=== PATIENT | male | born 1950 | race Caucasian/White ===

== ENCOUNTER → 2018-12-26 | Outpatient (CLI) | payer MEDICARE, BC ==
--- NOTE | 2018-12-26 14:18 | XR ---
EXAMINATION TYPE: XR chest 2V DATE OF EXAM: 12/26/2018 COMPARISON: NONE TECHNIQUE: PA and lateral views submitted. HISTORY: Cough FINDINGS: The lungs are clear and there is no pneumothorax, pleural effusion, or focal pneumonia. IMPRESSION: 1. No acute process.
== END | disposition home or self-care (01) ==
LOC: RADXRMAIN 11:10
PROVIDERS: ATTEND Family Medicine
DX: R05 Cough (principal); J01.80 Other acute sinusitis
CPT/HCPCS: 71046

== ENCOUNTER → 2021-01-10 | Outpatient (CLI) | payer MEDICARE, BC ==
--- NOTE | 2021-01-10 16:35 | XR ---
EXAMINATION TYPE: XR chest 2V DATE OF EXAM: 01/10/2021 COMPARISON: Us x-ray 12/26/2018 HISTORY: Hypertension, history of Covid infection TECHNIQUE: Frontal and lateral views of the chest are obtained. FINDINGS: There is no focal air space opacity, pleural effusion, or pneumothorax seen. The cardiac silhouette size is within normal limits. Elevation of the right hemidiaphragm is stable. The osseou s structures are intact. IMPRESSION: No acute cardiopulmonary process.
== END ==
LOC: RADXRMAIN 11:47
PROVIDERS: ATTEND Family Medicine
DX: I10 Essential (primary) hypertension (principal)
CPT/HCPCS: 71046; Z8616

== ENCOUNTER → 2023-09-19 | Outpatient (CLI) | payer MEDICARE, BC ==
--- NOTE | 2023-09-19 16:11 | XR ---
EXAMINATION TYPE: XR Hip Bilateral 2 views each side Complete, XR knee complete 3 views each side lashawn ateral DATE OF EXAM: 09/19/2023 COMPARISON: NONE HISTORY: 73-year-old male R52, pain for one year FINDINGS: Hips: There is mild degenerative spurring of both hips but with relative preservation of hip joint space on either side. Some calcification forming at the bilateral hamstrings origin could reflect chronic ten dinopathy or other etiology such as CPPD. No acute fracture, subluxation, dislocation. Knees: No significant knee joint effusion. Minimal scattered spurring at both knees. Meniscal chondrocalcin osis noted. No acute fracture, subluxation, dislocation seen. IMPRESSION: 1. Hips: Mild degenerative change in both hips. There may be underlying chronic hamstrings origin ten dinopathy. 2. Knees: Meniscal chondrocalcinosis. Minimal scattered degenerative spurring. No acute osseous abnor mality seen.
== END | disposition home or self-care (01) ==
LOC: RADXRMAIN 14:01
PROVIDERS: ATTEND Family Medicine
DX: M16.0 Bilateral primary osteoarthritis of hip (principal); M11.262 Other chondrocalcinosis, left knee; M11.261 Other chondrocalcinosis, right knee; M25.761 Osteophyte, right knee; M25.762 Osteophyte, left knee
CPT/HCPCS: 73521

== ENCOUNTER 2024-01-12 02:22 | Inpatient (IN) | payer MEDICARE, BC ==
--- NOTE | 2024-01-12 02:27 | ED ---
Chest Pain HPI - General Stated Complaint: STEMI Time Seen by Provider: 01/12/24 02:24 - History of Present Illness Initial Comments: He is 73-year-old gentleman with a history of hypertension, no history of hyperlipidemia, no known cardiac disease not a smoker. Patient presents the ER today via EMS for chest pain. Patient woke from sleep had crushing retrosternal chest pain radiating to his left shoulder with associated diaphoresis and lightheadedness. EMS was called and EKG was performed on scene that was concerning for anterior lateral STEMI. The patient was given aspirin and nitro with some improvement with nitro. On arrival patient reports his pain is 8 out of 10 crushing radiating from the mid chest to the left shoulder. - Related Data Home Medications Medication Instructions Recorded Confirmed Losartan [Cozaar] 50 mg PO QAM 04/13/15 05/12/15 Olopatadine HCl [Patanol] 1 drop BOTH EYES DAILY 04/13/15 05/12/15 Allergies Allergy/AdvReac Type Severity Reaction Status Date / Time No Known Allergies Allergy Verified 05/12/15 06:30 Review of Systems ROS Statement: Those systems with pertinent positive or pertinent negative responses have been documented in the HPI. ROS Other: All systems not noted in ROS Statement are negative. EKG Findings - EKG Comments: EKG Findings:: EKG interpreted by me EKG obtained due to chest pain EKG obtained at 225 rate is 59 rhythm is sinus bradycardia, AL 172 QRS 96 QTc [address] elevations in leads aVL, V2, V3 V4 and peaked T waves in V5 and V6. There is reciprocal depression in leads III. This is concerning for an anterior lateral STEMI. Past Medical History Past Medical History: Eye Disorder, Hypertension, Osteoarthritis (OA) Additional Past Medical History / Comment(s): cataract RIGHT History of Any Multi-Drug Resistant Organisms: None Reported Past Surgical History: Breast Surgery Additional Past Surgical History / Comment(s): gynecomastia surg. as child, LEFT CATARACT SX 04/14/15 Past Anesthesia/Blood Transfusion Reactions: No Reported Reaction Past Psychological History: No Psychological Hx Reported Past Alcohol Use History: None Reported Past Drug Use History: None Reported - Past Family History Father Family Medical History: Cancer General Exam - General Exam Comments Initial Comments: Physical Exam GENERAL: Diaphoretic in acute distress HENT: Normocephalic, Atraumatic. EYES: PERRL, EOMI PULMONARY: Unlabored respirations. No audible rales rhonchi or wheezing was noted. CARDIOVASCULAR: Bradycardic, regular ABDOMEN: Soft and nontender with normal bowel sounds. SKIN: Banks diaphoretic : Deferred NEUROLOGIC: Hard of hearing patient is alert and oriented x3. Moving all extremities spontaneously MUSCULOSKELETAL: Normal extremities with adequate strength and full range of motion. No lower extremity swelling or edema. No calf tenderness. PSYCHIATRIC: Normal psychiatric evaluation. Course Vital Signs 01/12/24 01/12/24 02:25 02:46 Temperature 97.6 F Pulse Rate 60 61 Respiratory 18 20 Rate Blood Pressure 152/78 133/72 O2 Sat by Pulse 99 99 Oximetry Chest Pain MDM - [facility] Prehospital EKG which was obtained at 2:15 AM was reviewed and code STEMI was activated The patient was seen and evaluated immediately upon arrival to the emergency department, patient is banks diaphoretic experiencing severe chest pain STEMI order set was initiated Dilaudid was ordered for pain as well as nitro, heparin was started Dr Ibarra notified of the activation Was pt. sent in by a medical professional or institution (, PA, SENIOR SPECIALIST, urgent care, hospital, or half-way...) When possible be specific @ -No Did you speak to anyone other than the patient for history (EMS, parent, family, police, friend...)? What history was obtained from this source @ -, EMS Did you review nursing and triage notes (agree or disagree)? Why? @ -I reviewed and agree with nursing and triage notes Were old charts reviewed (outside hosp., previous admission, EMS record, old EKG, old radiological studies, urgent care reports/EKG's, half-way records)? Report findings @ -No old charts were reviewed Differential Diagnosis (chest pain, altered mental status, abdominal pain women, abdominal pain men, vaginal bleeding, weakness, fever, dyspnea, syncope, headache, dizziness, GI bleed, back pain, seizure, CVA, palpatations, mental health)? @ -Differential Chest Pain: Stable Angina, Unstable Angina, STEMI, NSTEMI Aortic Dissection, Pneumothorax, Musculoskeletal, Esophageal Spasm GERD, Cholecystitis, Pancreatitis, Zoster, this is not meant to be an all-inclusive list. EKG interpreted by me (3pts min.). @ -As above STEMI X-rays interpreted by me (1pt min.). @ -No widened mediastinum CT interpreted by me (1pt min.). @ -None done U/S interpreted by me (1pt. min.). @ -None done What testing was considered but not performed or refused? (CT, X-rays, U/S, labs)? Why? @ -None What meds were considered but not given or refused? Why? @ -None Did you discuss the management of the patient with other professionals (professionals i.e. Dr., PA, SENIOR SPECIALIST, lab, RT, psych nurse, social insurance analyst, inspector filters, teacher, chief technology officer, caseworker protective services)? Give summary @ -waste duster Dr. Ibarra Was smoking cessation discussed for >3mins.? @ -No Was critical care preformed (if so, how long)? @ -Yes, Were there social determinants of health that impacted care today? How? (Homelessness, low income, unemployed, alcoholism, drug addiction, transportation, low edu. Level, literacy, decrease access to med. care, nursing home, rehab)? @ -No Was there de-escalation of care discussed even if they declined (Discuss DNR or withdrawal of care, Hospice)? DNR status @ -No What co-morbidities impacted this encounter? (DM, HTN, Smoking, COPD, CAD, Cancer, CVA, ARF, Chemo, Hep., AIDS, mental health diagnosis, sleep apnea, morbid obesity)? @ -Hypertension Was patient admitted / discharged? Hospital course, mention meds given and route, prescriptions, significant lab abnormalities, going to OR and other pertinent info. @ -Admit Patient's EKG was reviewed prior to arrival and meet STEMI criteria. STEMI activation waste duster Dr Ibarra and cath team notified. Patient was seen immediately upon arrival, we followed STEMI protocol The patient was immediately placed in a monitored bed, and IV was placed, oxygen was administered, and the EKG was evaluated. The ECG revealed STEMI. I spoke with DR. Ibarra of cardiology who agreed to take this patient directly to cardiac catheterization. Defibrillator pads were placed on the patient. The patient was given Aspirin. After a chest x-ray was performed which showed no mediastinal widening IV heparin was given based on the patients weight. The patient had normal hemodynamics during the ED course and was taken directly to the cardiac labor supervisor #3 awake and alert. Undiagnosed new problem with uncertain prognosis? @ -Yes - Drug Therapy requiring intensive monitoring for toxicity (Heparin, Nitro, Insulin, Cardizem)? @ -Yes heparin Were any procedures done? @ -No Diagnosis/symptom? @ -STEMI Acute, or Chronic, or Acute on Chronic? @ -Acute Uncomplicated (without systemic symptoms) or Complicated (systemic symptoms)? @ -Default Side effects of treatment? @ -No Exacerbation, Progression, or Severe Exacerbation? @ -No Poses a threat to life or bodily function? How? (Chest pain, USA, CT, pneumonia, PE, COPD, DKA, ARF, appy, cholecystitis, CVA, Diverticulitis, Homicidal, Suicidal, threat to staff... and all critical care pts) @ -Yes, can resulted in fatal arrhythmia Critical Care Time Critical Care Time: Yes Total Critical Care Time: 20 Disposition Clinical Impression: STEMI (ST elevation myocardial infarction) Disposition: ADMITTED IP TO THIS [facility] Condition: Serious Is patient prescribed a controlled substance at d/c from ED?: No
[2024-01-12] MEDS: HEPARIN SODIUM 1,000 UN/ML (10ML VL) IV ONE ×2 (02:37→03:10)
[2024-01-12] MEDS: HYDROmorphone 1 MG/ML 1 ML SYRINGE IVP STA (02:39)
[2024-01-12] MEDS: HEPARIN SOD,PORK IN 0.45% NACL 25,000 UNIT in 0.45% NACL 1 250ML.BAG IV SCH (02:41)
[2024-01-12] MEDS: NITROGLYCERIN SL TABS 0.4 MG TAB SUBLINGUAL PRN (02:43)
[2024-01-12 02:46] LABS: Basophils % (A) 1 %; Eosinophils # (A) 0.4 k/uL (0-0.7); Eosinophils % (A) 4 %; HCT 43.3 % (39.0-53.0); HGB 14.6 gm/dL (13.0-17.5); Lymphocytes # (A) 3.7 k/uL (1.0-4.8); Lymphocytes % (A) 45 %; MCHC 33.7 g/dL (31.0-37.0); Mean Platelet Volume 8.2; Monocytes # (A) 0.7 k/uL (0-1.0); Monocytes % (A) 9 %; Neutrophils # (A) 3.2 k/uL (1.3-7.7); Neutrophils % (A) 38 %; Platelet Count 307 k/uL (150-450); RBC 4.55 m/uL (4.30-5.90); RDW 12.7 % (11.5-15.5); WBC 8.2 k/uL (3.8-10.6)
[2024-01-12] MEDS: SODIUM CHLORIDE 0.9% 1,000 ML IV ONE (03:00)
[2024-01-12 03:02] LABS: ALT 28 U/L (4-49); AST 39 U/L (17-59); African American GFR (CKD) >90 (>60 ml/min/1.73 sqM); Albumin 4.4 g/dL (3.5-5.0); Alkaline Phosphatase 26 U/L (38-126); Anion Gap 10 mmol/L; Blood Urea Nitrogen 18 mg/dL (9-20); Calcium 8.8 mg/dL (8.4-10.2); Carbon Dioxide 20 mmol/L (22-30); Chloride 108 mmol/L (98-107); Glucose 125 mg/dL (74-99); INR 1.1 (<1.2); Non-African American GFR(CKD) 86 (>60 ml/min/1.73 sqM); Partial Thromboplastin Time 26.7 sec (22.0-30.0); Prothrombin Time 11.5 sec (10.0-12.5); Sodium 138 mmol/L (137-145); Total Bilirubin 1.4 mg/dL (0.2-1.3); Total Protein 7.4 g/dL (6.3-8.2)
[2024-01-12] MEDS: fentaNYL (PF) 50 MCG/ML 2 ML AMP IVP ONE (03:02)
[2024-01-12] MEDS ORDERED: fentaNYL (PF) 50 MCG/ML 2 ML AMP ONE (03:02)
[2024-01-12] MEDS: MIDAZOLAM 2 MG/2 ML VIAL IVP ONE (03:02)
[2024-01-12] MEDS: LIDOCAINE 1% INJ 10MG/ML (20 ML MDV) SQ ONE (03:02)
[2024-01-12] MEDS: VERAPAMIL SYRINGE (5 MG/10 ML) INTRAARTER ONE (03:04)
[2024-01-12] MEDS ORDERED: HEPARIN SODIUM 1,000 UN/ML (10ML VL) ONE (03:05)
[2024-01-12 03:12] LABS: Potassium 4.1 mmol/L (3.5-5.1)
[2024-01-12] MEDS ORDERED: TICAGRELOR 90 MG TAB ONE (03:17)
[2024-01-12] MEDS: TICAGRELOR 90 MG TAB PO ONE (03:20)
--- NOTE | 2024-01-12 03:26 | P.CRDCN ---
History of Present Illness Consult date: 01/12/24 History of present illness: DIAGNOSTIC CORONARY ANGIOGRAPHY and LEFT HEART CATH REPORT PROCEDURES PERFORMED: Left heart catheterization Selective coronary angiography Moderate conscious sedation 11 mins Right radial access INDICATION: Anterior STEMI 73-year-old presented to the ER because of substernal chest pressure which woke him up today in the night. On presentation to ER he had ST elevations in his anterior and anteroseptal leads with reciprocal ST changes in inferior leads. Further STEMI was activated. Patient reports history of hypertension. He is a non-smoker, nondiabetic, no prior history of stroke TIA. CONSENT: I have explained the procedural steps of above-mentioned procedures in layman's terms to the patient. I discussed the risks (including but not limited to stroke, emergent vascular or cardiac surgery or ), benefits and alternative therapies for the above-mentioned procedure. I discussed the risks of sedation/analgesia and blood product administration (if indicated). The patient has indicated understanding and acceptance of these risks. Conscious Sedation: Patient's ECG, heart rate, blood pressure, pulse oximetry were monitored throughout the duration of procedure under my direct supervision. [2] mg Versed and [50] mg Fentanyl were used for induction of moderate conscious sedation. Total duration of moderate concious sedation [11] minutes. PROCEDURE: After explaining the risks, benefits and alternatives of the above mentioned procedures in detail to the patient, informed consent was obtained. Patient was taken to the catheterization lab, prepped and draped in usual sterile fashion using universal precuations. Barbow and madison test were performed to confirm adequate perfusion to fingers. Ultrasound was used to identify the radial artery. 1% lidocaine was infiltrated over the right radial artery. A 6-Ethiopian sheath was placed and secured in the right radial artery using modified Seldinger technique. The sheath was flushed and 5 mg verapamil was administered intra-arterially. J tipped wire was advanced under fluoroscopic guidance. Once the wire tip reached aortic root [2000] units of IV heparin was given. 4000 units of IV heparin was administered in the ER. 325 mg of aspirin was administered in the ER Over the wire JR4 diagnostic catheter was advanced. The wire in place the catheter was manipulated to cross the aortic valve and entered into LV under fluoroscopy guidance. The wire was removed and the catheter was flushed. LV pressures were obtained and pullback was performed under fluoroscopy. Catheter was manipulated to selectively engage the right coronary ostium. Right coronary angiography was performed in different angiographic projections. The JR4 diagnostic catheter was exchanged for a JL 4 diagnostic catheter over the J-wire. The wire was removed, catheter was flushed and manipulated under fluoroscopy to selectively engaged the left coronary ostium. Left coronary an gioplasty was performed in different angiographic projections. Catheter was removed over the wire. Radial sheath was flushed. The right radial sheath was removed and a TR band was placed with excellent patent hemostasis was achieved. The patient tolerated the procedure well. Patient was transported back to the post catheterization holding area in stable condition. Angiographic images were reviewed in detail. HEMODYNAMICS: Aortic Pressure: 168/78 mmHg. LV pressure: 168/20 mmHg. LVEDP 35 mmHg. There was no significant gradient across the aortic valve. SELECTIVE CORONARY ARTERIOGRAPHY: LEFT MAIN: The left main is a large caliber vessel which bifurcates into the LAD and circumflex. Left main appears angiographically normal. LEFT ANTERIOR DESCENDING CORONARY ARTERY: LAD is a large caliber vessel which wraps around to the apex. Proximal LAD has mild luminal irregularities. It appears that it gives a large septal branch which essentially looks like a second LAD reaches up to the apex and gives a septal astronomy department chair branches. Mid LAD has 100% thrombotic occlusion with LESLEY 0 flow. There is retrograde filling of distal LAD from left to left collaterals. LEFT CIRCUMFLEX CORONARY ARTERY: It is dominant vessel. Left circumflex is a large-caliber caliber vessel. Proximal LCx has mild luminal irregularities. It gives rise to 3 large OM branches which appears to have mild luminal irregularities. It gives rise to PL and PDA branch which appears angiographically normal. RIGHT CORONARY ARTERY: Non-Dominant vessel. The right coronary artery is small caliber and has a high anterior takeoff. RCA is overall angiographically normal and gives rise to RV marginal branch. IMPRESSION: Anterior STEMI 100% mid LAD stenosis, LESLEY 0 flow Mild luminal irregularities in the LCx Nondominant RCA Elevated LVEDP at 35 mmHg PLAN: Plan for emergent PCI of mid LAD with Dr. Grant Further recommendations to follow Performing Physician Paco Ibarra MD, FACC, RPVI Thank you for allowing [facility] to participate in this patient's care. Feel free to reach out in case of any followup questions. Past Medical History Past Medical History: Eye Disorder, Hypertension, Osteoarthritis (OA) Additional Past Medical History / Comment(s): cataract RIGHT History of Any Multi-Drug Resistant Organisms: None Reported Past Surgical History: Breast Surgery Additional Past Surgical History / Comment(s): gynecomastia surg. as child, LEFT CATARACT SX 04/14/15 Past Anesthesia/Blood Transfusion Reactions: No Reported Reaction Past Psychological History: No Psychological Hx Reported Past Alcohol Use History: None Reported Past Drug Use History: None Reported - Past Family History Father Family Medical History: Cancer Medications and Allergies Home Medications Medication Instructions Recorded Confirmed Type Losartan [Cozaar] 50 mg PO QAM 04/13/15 05/12/15 History Olopatadine HCl [Patanol] 1 drop BOTH EYES DAILY 04/13/15 05/12/15 History Allergies Allergy/AdvReac Type Severity Reaction Status Date / Time No Known Allergies Allergy Verified 05/12/15 06:30 Physical Exam Vitals: Vital Signs Temp Pulse Resp BP Pulse Ox 01/12/24 02:46 61 20 133/72 99 01/12/24 02:25 97.6 F 60 18 152/78 99 Intake and Output 01/11/24 01/11/24 01/12/24 14:59 22:59 06:59 Other: Weight 86.183 kg Results 01/12/24 02:34 01/12/24 02:34 Cardiac Enzymes 01/12/24 01/12/24 Range/Units 02:34 02:34 AST 39 (17-59) U/L Troponin I 0.028 (0.000-0.034) ng/mL Coagulation 01/12/24 Range/Units 02:34 PT 11.5 (10.0-12.5) sec APTT 26.7 (22.0-30.0) sec CBC 01/12/24 Range/Units 02:34 WBC 8.2 (3.8-10.6) k/uL RBC 4.55 (4.30-5.90) m/uL Hgb 14.6 (13.0-17.5) gm/dL Hct 43.3 (39.0-53.0) % Plt Count 307 (150-450) k/uL Comprehensive Metabolic Panel 01/12/24 Range/Units 02:34 Sodium 138 (137-145) mmol/L Potassium 4.1 (3.5-5.1) mmol/L Chloride 108 H (98-107) mmol/L Carbon Dioxide 20 L (22-30) mmol/L BUN 18 (9-20) mg/dL Creatinine 0.90 (0.66-1.25) mg/dL Glucose 125 H (74-99) mg/dL Calcium 8.8 (8.4-10.2) mg/dL AST 39 (17-59) U/L ALT 28 (4-49) U/L Alkaline Phosphatase 26 L (38-126) U/L Total Protein 7.4 (6.3-8.2) g/dL Albumin 4.4 (3.5-5.0) g/dL Current Medications Generic Name Dose Route Start Last Admin Trade Name Freq PRN Reason Stop Dose Admin Heparin Sodium/Sodium Chloride 250 mls @ 10.344 mls/hr 01/12/24 02:30 01/12/24 02:41 25,000 unit/ Sodium Chloride IV 12 units/kg/hr .Q24H RADHA 10.344 mls/hr Administration Protocol 12 UNITS/KG/HR Nitroglycerin 0.4 mg 01/12/24 02:24 01/12/24 02:43 Nitroglycerin Sl Tabs 0.4 Mg Tab SUBLINGUAL 0.4 mg Q5M PRN Administration Chest Pain Intake and Output 01/11/24 01/11/24 01/12/24 14:59 22:59 06:59 Other: Weight 86.183 kg Patient Weight 01/12/24 06:59 Weight 86.183 kg 01/12/24 02:34 01/12/24 02:34
--- NOTE | 2024-01-12 03:30 | P.CRDCN ---
History of Present Illness Consult date: 01/12/24 History of present illness: HISTORY OF PRESENTING ILLNESS 73-year-old male with past medical history of hypertension on losartan 50 mg. He presented to the ER because of substernal crusting pressure-like sensation in his chest which woke him up from sleep today. He reports that he has been having on and off substernal chest pressure for last 3 to 4 days but it would subside after a few minutes by itself. Today symptoms were very intense and could not get better by itself therefore he presented to the ER. On initial evaluation in the ER he had a ECG done which showed sinus rhythm with ST elevations in anteroseptal leads along with reciprocal ST changes in inferior leads. He was given 305 mg of aspirin and sublingual nitroglycerin along with 4000's of IV heparin. STEMI alert was activated. On bedside evaluation of patient, he was hemodynamically stable. His chest x- ray did not show any signs of pulmonary congestion, he did not appear volume overloaded. Systolic blood pressure 150, diastolic blood pressure 70s, pulse 90 bpm. Sinus rhythm on telemetry. His hemoglobin was 14, other labs were not available for my evaluation. Patient denies any prior history of stroke, TIA. He denies any prior history of diabetes, he is not on any antilipid medication. He is not on any antiplatelet therapy at home. He denies any bleeding diathesis, history of cancer or radiation. Social history: Patient denies any smoking, recreational drug use marijuana use. He reports occasional alcohol use. Family history: Patient does report strong family history of premature coronary artery disease in multiple family members in father side. REVIEW OF SYSTEMS 14 point review of system is negative except what is mentioned above in HPI. PHYSICAL EXAMINATION Vital signs reviewed. Head: Normocephalic. Eyes: Sclerae nonicteric. Neck: Brisk carotid upstroke, no jugular venous distention. Lungs: Clear to auscultation. Heart: Regular rate and rhythm, S1-S2, no S3, no murmur or rub. Abdomen: Soft nontender, positive bowel sounds. Extremities: No edema, intact distal pulses. Neuro: Alert, oritented, no focal deficits. Detailed neuro exam was not performed. ASSESSMENT Anterior STEMI Essential hypertension PLAN Plan for emergent cardiac authorization. I explained him the procedure steps, risk factors and stated with emergent cardiac cath including stroke, [place], , vascular injury, kidney injury. Patient agrees and understands these respecters and would like to proceed. Obtain echocardiogram Further management after cardiac cath in ICU for next 24 hours. Paco Ibarra MD, FACC, RPVI Thank you for allowing [facility] to participate in this patient's care. Feel free to reach out in case of any followup questions. Past Medical History Past Medical History: Eye Disorder, Hypertension, Osteoarthritis (OA) Additional Past Medical History / Comment(s): cataract RIGHT History of Any Multi-Drug Resistant Organisms: None Reported Past Surgical History: Breast Surgery Additional Past Surgical History / Comment(s): gynecomastia surg. as child, LEFT CATARACT SX 04/14/15 Past Anesthesia/Blood Transfusion Reactions: No Reported Reaction Past Psychological History: No Psychological Hx Reported Past Alcohol Use History: None Reported Past Drug Use History: None Reported - Past Family History Father Family Medical History: Cancer Medications and Allergies Home Medications Medication Instructions Recorded Confirmed Type Losartan [Cozaar] 50 mg PO QAM 04/13/15 05/12/15 History Olopatadine HCl [Patanol] 1 drop BOTH EYES DAILY 04/13/15 05/12/15 History Allergies Allergy/AdvReac Type Severity Reaction Status Date / Time No Known Allergies Allergy Verified 05/12/15 06:30 Physical Exam Vitals: Vital Signs Temp Pulse Resp BP Pulse Ox 01/12/24 02:46 61 20 133/72 99 01/12/24 02:25 97.6 F 60 18 152/78 99 Intake and Output 01/11/24 01/11/24 01/12/24 14:59 22:59 06:59 Other: Weight 86.183 kg Results 01/12/24 02:34 01/12/24 02:34 Cardiac Enzymes 01/12/24 01/12/24 Range/Units 02:34 02:34 AST 39 (17-59) U/L Troponin I 0.028 (0.000-0.034) ng/mL Coagulation 01/12/24 Range/Units 02:34 PT 11.5 (10.0-12.5) sec APTT 26.7 (22.0-30.0) sec CBC 01/12/24 Range/Units 02:34 WBC 8.2 (3.8-10.6) k/uL RBC 4.55 (4.30-5.90) m/uL Hgb 14.6 (13.0-17.5) gm/dL Hct 43.3 (39.0-53.0) % Plt Count 307 (150-450) k/uL Comprehensive Metabolic Panel 01/12/24 Range/Units 02:34 Sodium 138 (137-145) mmol/L Potassium 4.1 (3.5-5.1) mmol/L Chloride 108 H (98-107) mmol/L Carbon Dioxide 20 L (22-30) mmol/L BUN 18 (9-20) mg/dL Creatinine 0.90 (0.66-1.25) mg/dL Glucose 125 H (74-99) mg/dL Calcium 8.8 (8.4-10.2) mg/dL AST 39 (17-59) U/L ALT 28 (4-49) U/L Alkaline Phosphatase 26 L (38-126) U/L Total Protein 7.4 (6.3-8.2) g/dL Albumin 4.4 (3.5-5.0) g/dL Current Medications Generic Name Dose Route Start Last Admin Trade Name Freq PRN Reason Stop Dose Admin Heparin Sodium/Sodium Chloride 250 mls @ 10.344 mls/hr 01/12/24 02:30 01/12/24 02:41 25,000 unit/ Sodium Chloride IV 12 units/kg/hr .Q24H RADHA 10.344 mls/hr Administration Protocol 12 UNITS/KG/HR Nitroglycerin 0.4 mg 01/12/24 02:24 01/12/24 02:43 Nitroglycerin Sl Tabs 0.4 Mg Tab SUBLINGUAL 0.4 mg Q5M PRN Administration Chest Pain Intake and Output 01/11/24 01/11/24 01/12/24 14:59 22:59 06:59 Other: Weight 86.183 kg Patient Weight 01/12/24 06:59 Weight 86.183 kg 01/12/24 02:34 01/12/24 02:34
[2024-01-12] MEDS: IOPAMIDOL-370 100ML BTL INJ ONE ×2 (03:35→03:48)
[2024-01-12] MEDS ORDERED: MAG HYDROX/AL HYDROX/SIMETH 30 ML CUP PO PRN (03:49)
[2024-01-12] MEDS ORDERED: ZOLPIDEM 5 MG TAB PO PRN (03:49)
[2024-01-12] MEDS ORDERED: NITROGLYCERIN SL TABS 0.4 MG TAB SUBLINGUAL PRN (03:49)
[2024-01-12] MEDS ORDERED: RX INFO: IV CONTRAST WAS GIVEN 1 EACH MISC MISCELLANE PRN (03:49)
[2024-01-12] MEDS ORDERED: ATROPINE SULFATE 0.1 MG/ML 10ML SYRINGE IV PRN (03:49)
--- NOTE | 2024-01-12 03:54 | P.PCN ---
Date of Procedure: 01/12/24 Operative Findings: PERCUTANEOUS CORONARY INTERVENTION Performing physician Guicho Pineda M.D. Procedure Performed: 1. Successful stenting of the mid LAD using 4.0 x 33 mm Xience drug-eluting stent with an excellent angiographic results. 2. Adjunctive use of intravascular imaging (IVUS) Indication: Acute anterior ST elevation myocardial infarction Approach: Right radial artery Complications: None Level of Sedation: Moderate with a sedation length of 28 minutes Procedure Discussion: Please refer to diagnostic heart catheterization was performed by Dr. Ibarra earlier today. Anticoagulation was initiated using heparin with continuous ACT monitoring. Subsequently the left main was engaged using JL 3.5 guiding catheter. I did wired the LAD using a run-through wire. Predilatation was performed using 2.5 x 12 mm balloon with achieving door to balloon of 62 minutes. Subsequently I did intravascular ultrasound of the LAD which showed a diameter between 3.75 to 4 mm and the artery was not heavily calcified with a soft plaque. Subsequently I deployed 4.0 x 33 mm Xience drug-eluting stent where the stent was positioned under fluoroscopy guidance and deployed under fluoroscopy guidance. Intravascular ultrasound was performed again after I postdilated the proximal portion using 4 mm noncompliant balloon and showed that the stent proximally appears to be well opposed and well-expanded but distally appears to be not. I postdilated again the distal portion of the stent using 4 mm noncompliant balloon with final angiogram showing excellent angiographic results and the procedure was completed with no complication Postprocedure Management: 1. Dual antiplatelet therapy using aspirin and Brilinta for 12 months 2. Aggressive cholesterol control 3. Risk factors modification
[2024-01-12 04:11] LABS: Glucose,Whole Blood 151 mg/dL (70-110)
--- NOTE | 2024-01-12 05:48 | XR ---
EXAM: XR Chest, 1 View CLINICAL HISTORY: chest pain TECHNIQUE: Frontal view of the chest. COMPARISON: 01/10/2021.. FINDINGS: Lungs: Mild hypoventilation. No infiltrate. No atelectasis. No CHF. Pleural space: No pleural effusion. No pneumothorax. Heart: Unremarkable. No cardiomegaly. Mediastinum: Unremarkable. Normal mediastinal contour. Bones/joints: Unremarkable. No acute fracture. IMPRESSION: Mild hypoventilation. No definite CHF or infiltrate.
[2024-01-12] MEDS: SODIUM CHLORIDE 0.9% 1,000 ML in EMPTY BAG 1 BAG IV SCH (08:19)
[2024-01-12] MEDS: METOPROLOL TARTRATE 25 MG TAB PO SCH (08:20)
[2024-01-12] MEDS: TICAGRELOR 90 MG TAB PO SCH (08:20)
[2024-01-12] MEDS: lisinopriL 10 MG TAB PO SCH (08:20)
--- NOTE | 2024-01-12 11:39 | CA ---
Transthoracic Echo Report Name: Jin Fischer Age: 73 Gender: M : 1950 Exam Date: 01/12/2024 08:13 Exam Location: [facility] Ht (in): 71 Wt (lb): 190 Ordering Physician: Guicho Pineda MD ([id number]) Attending/Referring Phys: Water Ski Assembler Edna Mack RDCS Procedure CPT: Indications: ACS Cardiac Hx: Technical Quality: Technically difficult study Contrast 1: Definity Total Dose (mL): 2 Contrast 2: Total Dose (mL): MEASUREMENTS (Male / Female) Normal Values 2D ECHO LVOT Diameter 2.5 cm LV Diastolic Volume MOD BP 191.1 cm??? 67 - 155 / 56 - 104 cm??? LV Systolic Volume MOD BP 132.6 cm??? 22 - 58 / 19 - 49 cm??? LV Ejection Fraction MOD BP 30.6 % >= 55 % LV Cardiac Index MOD BP 1765.8 cm???/min???m??? LV Diastolic Volume MOD 4C 168.6 cm??? LV Systolic Volume MOD 4C 129.0 cm??? LV Ejection Fraction MOD 4C 23.5 % LV Cardiac Index MOD 4C 1194.8 cm???/min???m??? LV Diastolic Length 4C 9.8 cm LV Systolic Length 4C 8.9 cm LV Diastolic Volume MOD 2C 207.4 cm??? LV Systolic Volume MOD 2C 136.2 cm??? LV Ejection Fraction MOD 2C 34.3 % LV Cardiac Index MOD 2C 2146.5 cm???/min???m??? LV Diastolic Length 2C 10.3 cm LV Systolic Length 2C 8.9 cm LA Volume 71.2 cm??? 18 - 58 / 22 - 52 cm??? LA Volume Index 34.1 cm???/m??? 16 - 28 cm???/m??? Ascending Aorta Diameter 4.0 cm DOPPLER AV Peak Velocity 98.6 cm/s AV Peak Gradient 3.9 mmHg AV Mean Velocity 68.4 cm/s AV Mean Gradient 2.1 mmHg AV Velocity Time Integral 21.0 cm LVOT Peak Velocity 79.1 cm/s LVOT Peak Gradient 2.5 mmHg LVOT Velocity Time Integral 17.3 cm LVOT Stroke Volume 82.3 cm??? LVOT Stroke Volume Index 39.9 ml/m??? LVOT Cardiac Index 2482.2 cm???/min???m??? AV Area Cont Eq vti 3.9 cm??? AV Area Cont Eq pk 3.8 cm??? MV Area PHT 2.9 cm??? Mitral E Point Velocity 43.3 cm/s Mitral A Point Velocity 92.4 cm/s Mitral E to A Ratio 0.5 MV Deceleration Time 264.6 ms FINDINGS Left Ventricle Left ventricular ejection fraction is estimated at 25-30 %. Moderately increased left ventricular diastolic volume. Severely increased left ventricular systolic volume. Moderately decreased left ventricular ejection fraction. Akinetic apex. Right Ventricle Normal right ventricular size with mildly reduced function. Unable to estimate the right ventricular systolic pressure. Right Atrium Normal right atrial size. Left Atrium Moderately increased left atrial volume. Mildly increased left atrial area. Mitral Valve Structurally normal mitral valve. No evidence for mitral valve prolapse. No mitral stenosis. Trace mitral regurgitation. Aortic Valve Trileaflet aortic valve. No aortic stenosis. Mild aortic regurgitation. Tricuspid Valve Structurally normal tricuspid valve. No tricuspid stenosis. Trace tricuspid regurgitation. Pulmonic Valve Pulmonic valve not well visualized. No pulmonic stenosis. No pulmonic regurgitation. Pericardium No pericardial effusion. Aorta Aortic annulus normal. Ascending aorta mildly enlarged. CONCLUSIONS Left ventricular ejection fraction 25-30% Apical hypokinesis with basal sparing consistent with ischemic versus Takostubo's cardiomyopathy Mild aortic regurgitation Trace mitral regurgitation Trace tricuspid regurgitation No pericardial effusion Ascending aorta 4.0 cm Previewed by: Dr. Lemuel Pollack DO (Electronically Signed) Final Date: 12 Jan 2024 11:38
--- NOTE | 2024-01-12 12:59 | P.HPIM ---
History of Present Illness H&P Date: 01/12/24 History of present illness; patient is a 73-year-old gentleman with past medical history significant for hypertension brought to the ER for chest pain that started last night. Patient stated he was all right last night when he woke up with severe chest pain involving the center of his chest, it was crushing in nature radiating to his left shoulder. Denied any shortness of breath but complaining of diaphoresis and lightheadedness at the time. EMS was called immediately and EKG done en route showed patient to have ST segment elevation concerning for STEMI. Initial lab work done in the ER showed WBC 8.2, hemoglobin 14.6, platelet count 307, sodium 138, potassium 4.1, BUN 18, creatinine 0.90, glucose 125, total bilirubin 1.4, AST 39, ALT 28 EKG done in the ER showed heart rate of 59, ST segment elevation in leads I and aVL, V2, V3, V4, Server Manager was activated, patient underwent Successful stenting of the mid LAD using 4.0 x 33 mm Xience drug-eluting stent with an excellent angiographic r esults. Patient admitted to internal medicine service REVIEW OF SYSTEMS: CONSTITUTIONAL: No fever, no malaise, no fatigue. HEENT: No recent visual problems or hearing problems. Denied any sore throat. CARDIOVASCULAR: As mentioned HPI PULMONARY: As mentioned HPI GASTROINTESTINAL: No diarrhea, no nausea, no vomiting, no abdominal pain. NEUROLOGICAL: No headaches, no weakness, no numbness. HEMATOLOGICAL: Denies any bleeding or petechiae. GENITOURINARY: Denies any burning micturition, frequency, or urgency. MUSCULOSKELETAL/RHEUMATOLOGICAL: Denies any joint pain, swelling, or any muscle pain. ENDOCRINE: Denies any polyuria or polydipsia. The rest of the 14-point review of systems is negative. PHYSICAL EXAMINATION: GENERAL: The patient is alert and oriented x3, not in any acute distress. Well developed, well nourished. HEENT: Pupils are round and equally reacting to light. EOMI. No scleral icterus. No conjunctival pallor. Normocephalic, atraumatic. No pharyngeal erythema. No thyromegaly. CARDIOVASCULAR: S1 and S2 present. No murmurs, rubs, or gallops. PULMONARY: Chest is clear to auscultation, no wheezing or crackles. ABDOMEN: Soft, nontender, nondistended, normoactive bowel sounds. No palpable organomegaly. MUSCULOSKELETAL: No joint swelling or deformity. EXTREMITIES: No cyanosis, clubbing, or pedal edema. NEUROLOGICAL: Gross neurological examination did not reveal any focal deficits. SKIN: No rashes. Assessment and plan ST elevation PA Hypertension Monitor vital signs Monitor CBC Monitor CMP Continue telemetry monitoring Status post Successful stenting of the mid LAD using 4.0 x 33 mm Xience drug- eluting stent with an excellent angiographic results. Continue aspirin and Brilinta Start lisinopril postcardiac cath Continue Lopressor postcardiac cath Patient to be monitored in the ICU Cardiology following Labs and medication were reviewed.. Continue same treatment. Continue with symptomatic treatment. Resume home medication. Monitor labs and vitals. DVT and GI prophylaxis. Further recommendations as per clinical course of the patient Dictation was produced using [employer] dictation software. please excuse any grammatical, word or spelling errors. Past Medical History Past Medical History: Eye Disorder, Hypertension, Osteoarthritis (OA) Additional Past Medical History / Comment(s): cataract RIGHT History of Any Multi-Drug Resistant Organisms: None Reported Past Surgical History: Breast Surgery Additional Past Surgical History / Comment(s): gynecomastia surg. as child, LEFT CATARACT SX 04/14/15 Past Anesthesia/Blood Transfusion Reactions: No Reported Reaction Past Psychological History: No Psychological Hx Reported Past Alcohol Use History: None Reported Past Drug Use History: None Reported - Past Family History Father Family Medical History: Cancer Medications and Allergies Home Medications Medication Instructions Recorded Confirmed Type Losartan [Cozaar] 50 mg PO QAM 04/13/15 05/12/15 History Olopatadine HCl [Patanol] 1 drop BOTH EYES DAILY 04/13/15 05/12/15 History Allergies Allergy/AdvReac Type Severity Reaction Status Date / Time No Known Allergies Allergy Verified 05/12/15 06:30 Physical Exam Vitals: Vital Signs Temp Pulse Pulse Resp BP Pulse Ox 01/12/24 08:00 98.5 F 65 17 124/82 95 01/12/24 07:00 66 17 145/71 96 01/12/24 06:00 60 9 L 143/72 95 01/12/24 05:00 56 L 12 123/77 96 01/12/24 04:20 97.6 F 63 20 138/73 96 01/12/24 04:00 58 L 01/12/24 02:46 61 20 133/72 99 01/12/24 02:25 97.6 F 60 18 152/78 99 Intake and Output 01/11/24 01/12/24 01/12/24 22:59 06:59 14:59 Intake Total 525 550 Output Total 700 300 Balance -175 250 Intake: IV 150 75 Sodium Chloride 0.9% 1, 75 000 ml In Empty Bag 1 bag @ 75 mls/hr IV .[id number] [facility] Rx#:[id number] Intake, IV Titration 225 75 Amount Sodium Chloride 0.9% 1, 225 75 000 ml In Empty Bag 1 bag @ 75 mls/hr IV .[id number] [facility] Rx#:[id number] Oral 150 400 Output: Urine 700 300 Other: Voiding Method Urinal Urinal Weight 86.183 kg Results CBC & Chem 7: 01/12/24 02:34 01/12/24 02:34 Labs: Abnormal Lab Results - Last 24 Hours (Table) 01/12/24 01/12/24 Range/Units 02:34 04:08 Chloride 108 H (98-107) mmol/L Carbon Dioxide 20 L (22-30) mmol/L Glucose 125 H (74-99) mg/dL POC Glucose (mg/dL) 151 H (70-110) mg/dL Total Bilirubin 1.4 H (0.2-1.3) mg/dL Alkaline Phosphatase 26 L (38-126) U/L
[2024-01-12] MEDS: ARTIFICIAL TEARS-HYPROMELLOSE DROPS 15 ML BTL BOTH EYES PRN (18:00)
[2024-01-12] MEDS: ATORVASTATIN 80 MG TAB PO SCH (21:04)
[2024-01-13 04:51] LABS: Basophils % (A) 0 %; Eosinophils # (A) 0.1 k/uL (0-0.7); Eosinophils % (A) 0 %; HCT 43.4 % (39.0-53.0); HGB 14.3 gm/dL (13.0-17.5); Lymphocytes # (A) 1.5 k/uL (1.0-4.8); Lymphocytes % (A) 10 %; MCH 31.7 pg (25.0-35.0); MCV 96.1 fL (80.0-100.0); Mean Platelet Volume 8.3; Monocytes # (A) 1.3 k/uL (0-1.0); Monocytes % (A) 9 %; Neutrophils # (A) 11.7 k/uL (1.3-7.7); Neutrophils % (A) 79 %; Platelet Count 268 k/uL (150-450); RBC 4.52 m/uL (4.30-5.90); RDW 13.3 % (11.5-15.5); WBC 14.8 k/uL (3.8-10.6)
[2024-01-13 05:06] LABS: ALT 41 U/L (4-49); AST 132 U/L (17-59); African American GFR (CKD) >90 (>60 ml/min/1.73 sqM); Albumin 3.7 g/dL (3.5-5.0); Alkaline Phosphatase 31 U/L (38-126); Anion Gap 5 mmol/L; Blood Urea Nitrogen 10 mg/dL (9-20); Calcium 8.9 mg/dL (8.4-10.2); Carbon Dioxide 25 mmol/L (22-30); Chloride 108 mmol/L (98-107); Glucose 112 mg/dL (74-99); Non-African American GFR(CKD) >90 (>60 ml/min/1.73 sqM); Sodium 138 mmol/L (137-145); Total Bilirubin 1.5 mg/dL (0.2-1.3); Total Protein 6.3 g/dL (6.3-8.2)
--- NOTE | 2024-01-13 07:58 | P.PN ---
Subjective HISTORY OF PRESENTING ILLNESS 73-year-old male with past medical history of hypertension on losartan 50 mg. He presented to the ER because of substernal crusting pressure-like sensation in his chest which woke him up from sleep today. He reports that he has been having on and off substernal chest pressure for last 3 to 4 days but it would subside after a few minutes by itself. Today symptoms were very intense and could not get better by itself therefore he presented to the ER. On initial evaluation in the ER he had a ECG done which showed sinus rhythm with ST elevations in anteroseptal leads along with reciprocal ST changes in inferior leads. He was given 305 mg of aspirin and sublingual nitroglycerin along with 4000's of IV heparin. STEMI alert was activated. On bedside evaluation of patient, he was hemodynamically stable. His chest x- ray did not show any signs of pulmonary congestion, he did not appear volume overloaded. Systolic blood pressure 150, diastolic blood pressure 70s, pulse 90 bpm. Sinus rhythm on telemetry. His hemoglobin was 14, other labs were not available for my evaluation. Patient denies any prior history of stroke, TIA. He denies any prior history of diabetes, he is not on any antilipid medication. He is not on any antiplatelet therapy at home. He denies any bleeding diathesis, history of cancer or radiation. Social history: Patient denies any smoking, recreational drug use marijuana use. He reports occasional alcohol use. Family history: Patient does report strong family history of premature coronary artery disease in multiple family members in father side. 01/12 patient seen and examined. He was having some continued chest pain yesterday after catheterization however improved shortly thereafter. Catheterization showed 100% LAD stenosis and otherwise mild disease of the circumflex and nondominant RCA. LV EDP significantly elevated at 34. He underwent PCI. Echo shows EF 25-30%. Remains in sinus rhythm. PHYSICAL EXAMINATION Vital signs reviewed. Head: Normocephalic. Eyes: Sclerae nonicteric. Neck: Brisk carotid upstroke, no jugular venous distention. Lungs: Clear to auscultation. Heart: Regular rate and rhythm, S1-S2, no S3, no murmur or rub. Abdomen: Soft nontender, positive bowel sounds. Extremities: No edema, intact distal pulses. Neuro: Alert, oritented, no focal deficits. Detailed neuro exam was not performed. ASSESSMENT Anterior STEMI status post PCI of LAD and otherwise mild disease of circumflex and a nondominant RCA Essential hypertension ischemic cardiomyopathy EF 25-30% PLAN optimize heart failure regimen and continue with metoprolol as well as lisinopril. Add low-dose Aldactone and Farxiga Patient will need LifeVest going home Okay for transfer out of ICU Hopeful discharge in next 24-48 hours. Objective - Vital Signs Vital signs: Vital Signs Temp 98.4 F 01/13/24 04:00 Pulse 76 01/13/24 07:00 Resp 10 L 01/13/24 07:00 BP 123/63 01/13/24 07:00 Pulse Ox 95 01/13/24 07:00 FiO2 Intake & Output 01/12/24 01/13/24 01/13/24 18:59 06:59 18:59 Intake Total 700 150 Output Total 300 750 Balance 400 -600 Weight 83.915 kg 78.6 kg Intake: IV 225 Sodium Chloride 0.9% 1, 225 000 ml In Empty Bag 1 bag @ 75 mls/hr IV .[id number] [facility] Rx#:[id number] Intake, IV Titration 75 Amount Sodium Chloride 0.9% 1, 75 000 ml In Empty Bag 1 bag @ 75 mls/hr IV .[id number] [facility] Rx#:[id number] Oral 400 150 Output: Urine 300 750 Other: Voiding Method Urinal Urinal # Voids 1 1 # Bowel Movements 1 1 # Emeses 1 - Labs CBC & Chem 7: 01/13/24 04:08 01/13/24 04:08 Labs: Abnormal Lab Results - Last 24 Hours (Table) 01/13/24 01/13/24 Range/Units 04:08 04:08 WBC 14.8 H (3.8-10.6) k/uL Neutrophils # 11.7 H (1.3-7.7) k/uL Monocytes # 1.3 H (0-1.0) k/uL Chloride 108 H (98-107) mmol/L Glucose 112 H (74-99) mg/dL Total Bilirubin 1.5 H (0.2-1.3) mg/dL AST 132 H (17-59) U/L Alkaline Phosphatase 31 L (38-126) U/L
[2024-01-13] MEDS: SPIRONOLACTONE 25 MG TAB PO SCH (09:10)
[2024-01-13] MEDS: DAPAGLIFLOZIN PROPANEDIOL 10 MG TABLET PO SCH (09:11)
[2024-01-13 10:55] VITALS: BMI 24.1
--- NOTE | 2024-01-13 11:36 | US ---
EXAMINATION TYPE: US abdomen limited DATE OF EXAM: 01/13/2024 COMPARISON: NONE CLINICAL INDICATION: Male, 73 years old with history of Elevated LFTs; Elevated LFTS TECHNIQUE: Multiple sonographic images of the right upper quadrant are obtained. FINDINGS: EXAM MEASUREMENTS: Liver Length: 16 cm Gallbladder Wall: .2 cm CBD: .3 cm Right Kidney: 11.1 x 4.5 x 4.2 cm LABORATORY ADMINISTRATIVE DIRECTOR NOTES: Pancreas: wnl Liver: wnl Gallbladder: No stones seen Evidence for sonographic Rizo's sign: No CBD: wnl Right Kidney: Anechoic area seen measuring 1.9 x 1.5 x 2.1 cm located along the upper to mid renal cortex. IMPRESSION: 1. Right renal cyst
--- NOTE | 2024-01-13 12:46 | P.PN ---
Subjective Progress Note Date: 01/13/24 patient is a 73-year-old gentleman with past medical history significant for hypertension brought to the ER for chest pain that started last night. Patient stated he was all right last night when he woke up with severe chest pain involving the center of his chest, it was crushing in nature radiating to his left shoulder. Denied any shortness of breath but complaining of diaphoresis and lightheadedness at the time. EMS was called immediately and EKG done en route showed patient to have ST segment elevation concerning for STEMI. Initial lab work done in the ER showed WBC 8.2, hemoglobin 14.6, platelet count 307, sodium 138, potassium 4.1, BUN 18, creatinine 0.90, glucose 125, total bilirubin 1.4, AST 39, ALT 28 EKG done in the ER showed heart rate of 59, ST segment elevation in leads I and aVL, V2, V3, V4, Press Supervisor was activated, patient underwent Successful stenting of the mid LAD using 4.0 x 33 mm Xience drug-eluting stent with an excellent angiographic results. Patient admitted to internal medicine service 01/12. Patient seen and examined. Blood work done this morning showed WBC 14.8, hemoglobin 14.3, sodium 130, potassium 4, BUN 10, creatinine 0.78, calcium 8.9, bilirubin 1.5. 2D echo done showed LVEF of 25 to 30%, apical hypokinesis with basal sparing consistent with ischemic versus Takotsubo cardiomyopathy. Denies any further episodes of chest pain. REVIEW OF SYSTEMS: CONSTITUTIONAL: No fever, no malaise,. CARDIOVASCULAR: No chest pain, no palpitations, no syncope. PULMONARY: No shortness of breath, no cough, GASTROINTESTINAL: No diarrhea, no nausea, no vomiting, no abdominal pain. NEUROLOGICAL: No headaches, no weakness, PHYSICAL EXAMINATION: GENERAL: The patient is alert and oriented x3, not in any acute distress. Well developed, well nourished. HEENT: Pupils are round and equally reacting to light. EOMI. No scleral icterus. No conjunctival pallor. Normocephalic, atraumatic. No pharyngeal erythema. No thyromegaly. CARDIOVASCULAR: S1 and S2 present. No murmurs, rubs, or gallops. PULMONARY: Chest is clear to auscultation, no wheezing or crackles. ABDOMEN: Soft, nontender, nondistended, normoactive bowel sounds. No palpable organomegaly. MUSCULOSKELETAL: No joint swelling or deformity. EXTREMITIES: No cyanosis, clubbing, or pedal edema. NEUROLOGICAL: Gross neurological examination did not reveal any focal deficits. SKIN: No rashes. Assessment and plan ST elevation [place] Hypertension Ischemic cardiomyopathy with a EF of 25 to 20% Monitor vital signs Monitor CBC Monitor CMP Continue telemetry monitoring Status post Successful stenting of the mid LAD using 4.0 x 33 mm Xience drug- eluting stent with an excellent angiographic results. Continue aspirin and Brilinta Continue lisinopril, Lopressor Cardiology added Farxiga and Aldactone Patient to be transferred out of ICU Labs and medication were reviewed.. Continue same treatment. Continue with symptomatic treatment. Resume home medication. Monitor labs and vitals. DVT and GI prophylaxis. Further recommendations as per clinical course of the patient Dictation was produced using [employer] dictation software. please excuse any grammatical, word or spelling errors. Objective - Vital Signs Vital signs: Vital Signs Temp 99.1 F 01/13/24 08:00 Pulse 85 01/13/24 09:00 Resp 16 01/13/24 09:00 BP 112/66 01/13/24 09:00 Pulse Ox 95 01/13/24 09:00 FiO2 Intake & Output 01/12/24 01/13/24 01/13/24 18:59 06:59 18:59 Intake Total 700 150 Output Total 300 750 0 Balance 400 -600 0 Weight 83.915 kg 78.6 kg Intake: IV 225 Sodium Chloride 0.9% 1, 225 000 ml In Empty Bag 1 bag @ 75 mls/hr IV .[id number] [facility] Rx#:[id number] Intake, IV Titration 75 Amount Sodium Chloride 0.9% 1, 75 000 ml In Empty Bag 1 bag @ 75 mls/hr IV .[id number] [facility] Rx#:[id number] Oral 400 150 Output: Urine 300 750 0 Other: Voiding Method Urinal Urinal Urinal # Voids 1 1 # Bowel Movements 1 1 # Emeses 1 - Labs CBC & Chem 7: 01/13/24 04:08 01/13/24 04:08 Labs: Abnormal Lab Results - Last 24 Hours (Table) 01/13/24 01/13/24 Range/Units 04:08 04:08 WBC 14.8 H (3.8-10.6) k/uL Neutrophils # 11.7 H (1.3-7.7) k/uL Monocytes # 1.3 H (0-1.0) k/uL Chloride 108 H (98-107) mmol/L Glucose 112 H (74-99) mg/dL Total Bilirubin 1.5 H (0.2-1.3) mg/dL AST 132 H (17-59) U/L Alkaline Phosphatase 31 L (38-126) U/L
[2024-01-14] MEDS: ACETAMINOPHEN TAB 325 MG TAB PO PRN (01:11)
--- NOTE | 2024-01-14 13:07 | P.PN ---
Subjective Progress Note Date: 01/14/24 HISTORY OF PRESENTING ILLNESS 73-year-old male with past medical history of hypertension on losartan 50 mg. He presented to the ER because of substernal crusting pressure-like sensation in his chest which woke him up from sleep today. He reports that he has been having on and off substernal chest pressure for last 3 to 4 days but it would subside after a few minutes by itself. Today symptoms were very intense and could not get better by itself therefore he presented to the ER. On initial evaluation in the ER he had a ECG done which showed sinus rhythm with ST elevations in anteroseptal leads along with reciprocal ST changes in inferior leads. He was given 305 mg of aspirin and sublingual nitroglycerin along with 4000's of IV heparin. STEMI alert was activated. On bedside evaluation of patient, he was hemodynamically stable. His chest x- ray did not show any signs of pulmonary congestion, he did not appear volume overloaded. Systolic blood pressure 150, diastolic blood pressure 70s, pulse 90 bpm. Sinus rhythm on telemetry. His hemoglobin was 14, other labs were not available for my evaluation. Patient denies any prior history of stroke, TIA. He denies any prior history of diabetes, he is not on any antilipid medication. He is not on any antiplatelet therapy at home. He denies any bleeding diathesis, history of cancer or radiation. Social history: Patient denies any smoking, recreational drug use marijuana use. He reports occasional alcohol use. Family history: Patient does report strong family history of premature coronary artery disease in multiple family members in father side. 01/12 patient seen and examined. He was having some continued chest pain yesterday after catheterization however improved shortly thereafter. Catheterization showed 100% LAD stenosis and otherwise mild disease of the circumflex and nondominant RCA. LV EDP significantly elevated at 34. He underwent PCI. Echo shows EF 25-30%. Remains in sinus rhythm. 01/13 Patient has been transferred out of the intensive care unit. He states he showered last night for the first time and he actually feels quite well today. Blood pressure 117/58, heart rate 85, pulse ox 96% on room air. Yesterday, Farxiga and Aldactone were added to his regime PHYSICAL EXAMINATION Vital signs reviewed. Head: Normocephalic. Eyes: Sclerae nonicteric. Neck: Brisk carotid upstroke, no jugular venous distention. Lungs: Clear to auscultation. Heart: Regular rate and rhythm, S1-S2, no S3, no murmur or rub. Abdomen: Soft nontender, positive bowel sounds. Extremities: No edema, intact distal pulses. Neuro: Alert, oritented, no focal deficits. Detailed neuro exam was not performed. ASSESSMENT Anterior STEMI status post PCI of LAD and otherwise mild disease of circumflex and a nondominant RCA Essential hypertension ischemic cardiomyopathy EF 25-30% PLAN optimize heart failure regimen and continue with metoprolol as well as lisinopril, Aldactone, and Farxiga Patient will need LifeVest going home. Consult with correctional counselor/case manager to make arrangements on Sunday. Hopeful discharge in next 24 hours after LifeVest is obtained. Nurse practitioner note has been reviewed, I agree with documented findings and plan of care. Patient was seen and examined. Objective - Vital Signs Vital signs: Vital Signs Temp 98.0 F 01/14/24 07:56 Pulse 72 01/14/24 07:56 Resp 16 01/14/24 07:56 BP 94/55 01/14/24 07:56 Pulse Ox 95 01/14/24 09:31 FiO2 21 01/14/24 09:31 Intake & Output 01/13/24 01/14/24 01/14/24 18:59 06:59 18:59 Intake Total 130 Output Total 0 Balance 0 130 Weight 78.6 kg Intake: IV 20 Invasive Line 1 10 Invasive Line 2 10 Oral 110 Output: Urine 0 Other: Voiding Method Toilet Toilet # Voids 3 0 # Bowel Movements 1 - Labs CBC & Chem 7: 01/13/24 04:08 01/13/24 04:08
--- NOTE | 2024-01-14 13:55 | P.PN ---
Subjective Progress Note Date: 01/14/24 patient is a 73-year-old gentleman with past medical history significant for hypertension brought to the ER for chest pain that started last night. Patient stated he was all right last night when he woke up with severe chest pain involving the center of his chest, it was crushing in nature radiating to his left shoulder. Denied any shortness of breath but complaining of diaphoresis and lightheadedness at the time. EMS was called immediately and EKG done en route showed patient to have ST segment elevation concerning for STEMI. Initial lab work done in the ER showed WBC 8.2, hemoglobin 14.6, platelet count 307, sodium 138, potassium 4.1, BUN 18, creatinine 0.90, glucose 125, total bilirubin 1.4, AST 39, ALT 28 EKG done in the ER showed heart rate of 59, ST segment elevation in leads I and aVL, V2, V3, V4, [facility] Consultant was activated, patient underwent Successful stenting of the mid LAD using 4.0 x 33 mm Xience drug-eluting stent with an excellent angiographic results. Patient admitted to internal medicine service 01/12. Patient seen and examined. Blood work done this morning showed WBC 14.8, hemoglobin 14.3, sodium 130, potassium 4, BUN 10, creatinine 0.78, calcium 8.9, bilirubin 1.5. 2D echo done showed LVEF of 25 to 30%, apical hypokinesis with basal sparing consistent with ischemic versus Takotsubo cardiomyopathy. Denies any further episodes of chest pain. 01/13. Patient seen and examined. Cardiology recommended LifeVest at discharge, case management to work on LifeVest tomorrow with possible discharge in the afternoon REVIEW OF SYSTEMS: CONSTITUTIONAL: No fever, no malaise,. CARDIOVASCULAR: No chest pain, no palpitations, no syncope. PULMONARY: No shortness of breath, no cough, GASTROINTESTINAL: No diarrhea, no nausea, no vomiting, no abdominal pain. NEUROLOGICAL: No headaches, no weakness, PHYSICAL EXAMINATION: GENERAL: The patient is alert and oriented x3, not in any acute distress. Well developed, well nourished. HEENT: Pupils are round and equally reacting to light. EOMI. No scleral icterus. No conjunctival pallor. Normocephalic, atraumatic. No pharyngeal erythema. No thyromegaly. CARDIOVASCULAR: S1 and S2 present. No murmurs, rubs, or gallops. PULMONARY: Chest is clear to auscultation, no wheezing or crackles. ABDOMEN: Soft, nontender, nondistended, normoactive bowel sounds. No palpable organomegaly. MUSCULOSKELETAL: No joint swelling or deformity. EXTREMITIES: No cyanosis, clubbing, or pedal edema. NEUROLOGICAL: Gross neurological examination did not reveal any focal deficits. SKIN: No rashes. Assessment and plan ST elevation [place] Hypertension Ischemic cardiomyopathy with a EF of 25 to 20% Monitor vital signs Monitor CBC Monitor CMP Continue telemetry monitoring Status post Successful stenting of the mid LAD using 4.0 x 33 mm Xience drug- eluting stent with an excellent angiographic results. Continue aspirin and Brilinta Continue lisinopril, Lopressor Continue Farxiga and Aldactone Cardiology following, recommend LifeVest at discharge Labs and medication were reviewed.. Continue same treatment. Continue with symptomatic treatment. Resume home medication. Monitor labs and vitals. DVT and GI prophylaxis. Further recommendations as per clinical course of the patient Dictation was produced using [employer] dictation software. please excuse any grammatical, word or spelling errors. Objective - Vital Signs Vital signs: Vital Signs Temp 98.0 F 01/14/24 07:56 Pulse 72 01/14/24 07:56 Resp 16 01/14/24 07:56 BP 94/55 01/14/24 07:56 Pulse Ox 95 01/14/24 09:31 FiO2 21 01/14/24 09:31 Intake & Output 01/13/24 01/14/24 01/14/24 18:59 06:59 18:59 Intake Total 130 Output Total 0 Balance 0 130 Weight 78.6 kg Intake: IV 20 Invasive Line 1 10 Invasive Line 2 10 Oral 110 Output: Urine 0 Other: Voiding Method Toilet Toilet Toilet # Voids 3 0 # Bowel Movements 1 - Labs CBC & Chem 7: 01/13/24 04:08 01/13/24 04:08
[2024-01-15 08:48] LABS: ALT 36 U/L (4-49); AST 55 U/L (17-59); African American GFR (CKD) 87 (>60 ml/min/1.73 sqM); Albumin 4.1 g/dL (3.5-5.0); Alkaline Phosphatase 35 U/L (38-126); Anion Gap 9 mmol/L; Basophils % (A) 0 %; Blood Urea Nitrogen 17 mg/dL (9-20); Calcium 9.1 mg/dL (8.4-10.2); Carbon Dioxide 23 mmol/L (22-30); Chloride 108 mmol/L (98-107); Eosinophils # (A) 0.2 k/uL (0-0.7); Eosinophils % (A) 2 %; Glucose 112 mg/dL (74-99); HCT 45.1 % (39.0-53.0); HGB 14.7 gm/dL (13.0-17.5); Lymphocytes % (A) 18 %; MCH 31.3 pg (25.0-35.0); MCHC 32.7 g/dL (31.0-37.0); MCV 95.9 fL (80.0-100.0); Mean Platelet Volume 8.4; Monocytes % (A) 9 %; Neutrophils # (A) 7.9 k/uL (1.3-7.7); Neutrophils % (A) 70 %; Non-African American GFR(CKD) 75 (>60 ml/min/1.73 sqM); Platelet Count 332 k/uL (150-450); Potassium 4.3 mmol/L (3.5-5.1); RDW 13.1 % (11.5-15.5); Sodium 140 mmol/L (137-145); Total Bilirubin 1.7 mg/dL (0.2-1.3); Total Protein 7.1 g/dL (6.3-8.2); WBC 11.4 k/uL (3.8-10.6)
[2024-01-15 12:45] VITALS: RESP 16
--- NOTE | 2024-01-15 13:08 | P.DS ---
Providers Date of admission: 01/12/24 02:27 Expected date of discharge: 01/15/24 Attending physician: Mario Garsia Consults: 01/12/24 03:49 Consult Physician Routine Consulting Provider: [facility] Reason/Comments: Post Interventional patient Do you want consulting provider notified?: Already Contacted Primary care physician: Jesús [facility] Course: Discharge diagnoses; ST elevation [place] Hypertension Ischemic cardiomyopathy with a EF of 25 to 20% Hospital course; patient is a 73-year-old gentleman with past medical history significant for hypertension brought to the ER for chest pain that started last night. Patient stated he was all right last night when he woke up with severe chest pain involving the center of his chest, it was crushing in nature radiating to his left shoulder. Denied any shortness of breath but complaining of diaphoresis and lightheadedness at the time. EMS was called immediately and EKG done en route showed patient to have ST segment elevation concerning for STEMI. Initial lab work done in the ER showed WBC 8.2, hemoglobin 14.6, platelet count 307, sodium 138, potassium 4.1, BUN 18, creatinine 0.90, glucose 125, total bilirubin 1.4, AST 39, ALT 28 EKG done in the ER showed heart rate of 59, ST segment elevation in leads I and aVL, V2, V3, V4, Local Flatbed Driver was activated, patient underwent Successful stenting of the mid LAD using 4.0 x 33 mm Xience drug-eluting stent with an excellent angiographic results. Patient admitted to internal medicine service 01/12. Patient seen and examined. Blood work done this morning showed WBC 14.8, hemoglobin 14.3, sodium 130, potassium 4, BUN 10, creatinine 0.78, calcium 8.9, bilirubin 1.5. 2D echo done showed LVEF of 25 to 30%, apical hypokinesis with basal sparing consistent with ischemic versus Takotsubo cardiomyopathy. Denies any further episodes of chest pain. 01/13. Patient seen and examined. Cardiology recommended LifeVest at discharge, case management to work on LifeVest tomorrow with possible discharge in the afternoon 01/14. Patient seen and examined. LifeVest has been ordered by cardiology. Being discharged on aspirin, Brilinta,Lipitor, Farxiga, lisinopril, Lopressor, Aldactone. Outpatient follow-up with cardiology PHYSICAL EXAMINATION: GENERAL: The patient is alert and oriented x3, not in any acute distress. Well developed, well nourished. HEENT: Pupils are round and equally reacting to light. EOMI. No scleral icterus. No conjunctival pallor. Normocephalic, atraumatic. No pharyngeal erythema. No thyromegaly. CARDIOVASCULAR: S1 and S2 present. No murmurs, rubs, or gallops. PULMONARY: Chest is clear to auscultation, no wheezing or crackles. ABDOMEN: Soft, nontender, nondistended, normoactive bowel sounds. No palpable organomegaly. MUSCULOSKELETAL: No joint swelling or deformity. EXTREMITIES: No cyanosis, clubbing, or pedal edema. NEUROLOGICAL: Gross neurological examination did not reveal any focal deficits. SKIN: No rashes. Dictation was produced using [employer] dictation software. please excuse any grammatical, word or spelling errors. Patient Condition at Discharge: Good Plan - Discharge Summary Discharge Rx Participant: No New Discharge Prescriptions: New Ticagrelor [Brilinta] 90 mg PO BID 30 Days #60 tab Metoprolol Tartrate [Lopressor] 25 mg PO BID 30 Days #60 tab Nitroglycerin Sl Tabs [Nitrostat] 0.4 mg SUBLINGUAL Q5M PRN #30 tab PRN Reason: Chest Pain lisinopriL [Zestril] 2.5 mg PO DAILY 30 Days #30 tab Dapagliflozin Propanediol [Farxiga] 10 mg PO DAILY 30 Days #30 tab Spironolactone [Aldactone] 12.5 mg PO DAILY 30 Days #30 tab Atorvastatin [Lipitor] 80 mg PO HS #30 tab Aspirin 81 mg PO DAILY 30 Days #30 tab Continue Multivitamins, Thera [Multivitamin (formulary)] 1 tab PO DAILY Fexofenadine HCl [Alyse Allergy] 180 mg PO DAILY Discontinued Losartan [Cozaar] 50 mg PO DAILY Discharge Medication List Fexofenadine HCl [Alyse Allergy] 180 mg PO DAILY 01/12/24 [History] Multivitamins, Thera [Multivitamin (formulary)] 1 tab PO DAILY 01/12/24 [History] Aspirin 81 mg PO DAILY 30 Days #30 tab 01/15/24 [Rx] Atorvastatin [Lipitor] 80 mg PO HS #30 tab 01/15/24 [Rx] Dapagliflozin Propanediol [Farxiga] 10 mg PO DAILY 30 Days #30 tab 01/15/24 [Rx] Metoprolol Tartrate [Lopressor] 25 mg PO BID 30 Days #60 tab 01/15/24 [Rx] Nitroglycerin Sl Tabs [Nitrostat] 0.4 mg SUBLINGUAL Q5M PRN #30 tab 01/15/24 [Rx] Spironolactone [Aldactone] 12.5 mg PO DAILY 30 Days #30 tab 01/15/24 [Rx] Ticagrelor [Brilinta] 90 mg PO BID 30 Days #60 tab 01/15/24 [Rx] lisinopriL [Zestril] 2.5 mg PO DAILY 30 Days #30 tab 01/15/24 [Rx] Follow up Appointment(s)/Referral(s): Jesús Meraz DO [Primary Care Provider] - 1-2 days Lemuel Pollack DO [STAFF PHYSICIAN] - 1 Week Patient Instructions/Handouts: *Surgery [facility] - After Heart Catheterization - Retirement Plan Specialist Instructions Discharge Disposition: HOME SELF-CARE
[2024-01-15] MEDS: ASPIRIN 81 MG PO SCH (14:33)
--- NOTE | 2024-01-15 15:02 | P.PN ---
Subjective Patient is doing well. Denies any shortness of breath chest discomfort dizziness lightheadedness He is ambulating around in the bathroom On examination blood pressure is 116/65 mmHg pulse rate in the 70s afebrile Breath sounds are clear no rhonchi no crackles heart sounds S1-S2 normal no murmurs No JVD No lower extremity edema 2D echo shows left ventricular ejection fraction 25 to 30% with anterior hypokinesis, severe with basal sparing Ascending aorta 4 cm White count 11.4 thousand, hemoglobin 14.7, normal platelet count Electrolytes normal sodium 140, potassium 4.3 BUN 17 and creatinine 1.[address] elevation OK Status post PCI of the LAD Mild disease of the left circumflex and nondominant RCA Essential hypertension Severe ischemic cardiomyopathy post OK ejection fraction 25 to 30% Plan Continue aspirin and Brilinta Continue metoprolol 25 mg twice daily and maximize as tolerated Continue lisinopril 2.5 mg p.o. daily Continue Farxiga I put in a request for a LifeVest for 4 months. Form signed LifeVest for greater than 3 months Reassessment of LV function at 3 months If despite maximally tolerated guideline directed medical treatment, there is no improvement in LV systolic function after 3 months, ICD implantation is recommended Objective - Vital Signs Vital signs: Vital Signs Temp 98.0 F 01/15/24 11:45 Pulse 71 01/15/24 11:45 Resp 16 01/15/24 11:45 BP 116/65 01/15/24 11:45 Pulse Ox 100 01/15/24 11:45 FiO2 21 01/14/24 09:31 Intake & Output 01/14/24 01/15/24 01/15/24 18:59 06:59 18:59 Intake Total 248 370 Balance 248 370 Weight 80.3 kg Intake: IV 20 10 Invasive Line 1 10 Invasive Line 2 10 10 Oral 228 360 Other: Voiding Method Toilet Toilet Toilet # Voids 2 1 3 - Labs CBC & Chem 7: 01/15/24 07:52 01/15/24 07:52 Labs: Abnormal Lab Results - Last 24 Hours (Table) 01/15/24 01/15/24 Range/Units 07:52 07:52 WBC 11.4 H (3.8-10.6) k/uL Neutrophils # 7.9 H (1.3-7.7) k/uL Chloride 108 H (98-107) mmol/L Glucose 112 H (74-99) mg/dL Total Bilirubin 1.7 H (0.2-1.3) mg/dL Alkaline Phosphatase 35 L (38-126) U/L
[2024-01-15 16:36] VITALS: BP 120/66; PULSE 73; TEMP 97.9
== END 2024-01-15 17:52 | disposition home or self-care (01) | DRG 322 ==
LOC: EC 02:22 → 2SICU 02:27 → 3SCARD 01-13 20:00
PROVIDERS: ADMIT Hospitalist; ATTEND Hospitalist
PROC: 027034Z Dilation of Coronary Artery, One Artery with Drug-eluting Intraluminal Device, Percutaneous Approach (ICD-10-PCS; principal; 2024-01-12 02:47)
PROC: B240ZZ3 Ultrasonography of Single Coronary Artery, Intravascular (ICD-10-PCS; 2024-01-12 02:47)
PROC: 4A023N7 Measurement of Cardiac Sampling and Pressure, Left Heart, Percutaneous Approach (ICD-10-PCS; 2024-01-12 02:47)
PROC: B2111ZZ Fluoroscopy of Multiple Coronary Arteries using Low Osmolar Contrast (ICD-10-PCS; 2024-01-12 02:47)
DX: I21.09 ST elevation (STEMI) myocardial infarction involving other coronary artery of anterior wall (principal); I25.10 Atherosclerotic heart disease of native coronary artery without angina pectoris; I25.5 Ischemic cardiomyopathy; I10 Essential (primary) hypertension; I25.2 Old myocardial infarction; Z82.49 Family history of ischemic heart disease and other diseases of the circulatory system
CPT/HCPCS: 71045; 76705; 76937; 80053; 84484; 85025; 85610; 85730; 92978; 93005; 93306; 93458; 94760; 96365; 96375; 99285

== ENCOUNTER 2024-02-09 17:19 | Inpatient (IN) | payer MEDICARE, BC ==
--- NOTE | 2024-02-09 17:44 | ED ---
Chest Pain HPI - General Chief Complaint: Chest Pain Stated Complaint: Chest pain Time Seen by Provider: 02/09/24 17:30 Source: patient, RN notes reviewed, old records reviewed Mode of arrival: EMS Limitations: no limitations - History of Present Illness Initial Comments: 73-year-old male with a history of a recent OH with 100% obstruction of the LAD status post stenting. Patient appears currently has an EF of 25% who presents with complaints the onset this morning of chest pain with radiation to the left shoulder down the left arm. Was severe this morning he did take nitroglycerin with some improvement. He still has some dull pain to the left shoulder however. He also to his upper left back. No trauma reported no fevers chills sweats no cough or phlegm production. MD Complaint: chest pain - Related Data Home Medications Medication Instructions Recorded Confirmed Fexofenadine HCl [Alyse Allergy] 180 mg PO DAILY 01/12/24 01/12/24 Multivitamins, Thera [Multivitamin 1 tab PO DAILY 01/12/24 01/12/24 (formulary)] Previous Rx's Medication Instructions Recorded Aspirin 81 mg PO DAILY 30 Days #30 tab 01/15/24 Atorvastatin [Lipitor] 80 mg PO HS #30 tab 01/15/24 Dapagliflozin Propanediol [Farxiga] 10 mg PO DAILY 30 Days #30 tab 01/15/24 Metoprolol Tartrate [Lopressor] 25 mg PO BID 30 Days #60 tab 01/15/24 Nitroglycerin Sl Tabs [Nitrostat] 0.4 mg SUBLINGUAL Q5M PRN #30 tab 01/15/24 Spironolactone [Aldactone] 12.5 mg PO DAILY 30 Days #30 tab 01/15/24 Ticagrelor [Brilinta] 90 mg PO BID 30 Days #60 tab 01/15/24 lisinopriL [Zestril] 2.5 mg PO DAILY 30 Days #30 tab 01/15/24 Allergies Allergy/AdvReac Type Severity Reaction Status Date / Time No Known Allergies Allergy Verified 02/09/24 17:27 Review of Systems ROS Statement: Those systems with pertinent positive or pertinent negative responses have been documented in the HPI. ROS Other: All systems not noted in ROS Statement are negative. Past Medical History Past Medical History: Eye Disorder, Hypertension, Osteoarthritis (OA) Additional Past Medical History / Comment(s): cataract RIGHT Last Myocardial Infarction Date:: 01/12/24 History of Any Multi-Drug Resistant Organisms: None Reported Past Surgical History: Breast Surgery Additional Past Surgical History / Comment(s): gynecomastia surg. as child, LEFT CATARACT SX 04/14/15 Past Anesthesia/Blood Transfusion Reactions: No Reported Reaction Date of Last Stent Placement:: 01/12/24 Past Psychological History: No Psychological Hx Reported Smoking Status: Never smoker Past Alcohol Use History: None Reported Past Drug Use History: None Reported - Past Family History Father Family Medical History: Cancer Additional Family Medical History / Comment(s): "skin cancer and blood leukemia" General Exam - General Exam Comments Initial Comments: This is a well-developed well-nourished awake alert oriented x 4 male Limitations: no limitations General appearance: alert, anxious Head exam: Present: atraumatic, normocephalic, normal inspection Eye exam: Present: normal appearance, PERRL, EOMI. Absent: scleral icterus, conjunctival injection, periorbital swelling ENT exam: Present: normal exam, mucous membranes moist Neck exam: Present: normal inspection, full ROM, other (No stridor JVD or bruits). Absent: tenderness, meningismus, lymphadenopathy Respiratory exam: Present: normal lung sounds bilaterally, chest wall tenderness (Is palpation of the left trapezius musculature this does reproduce patient's discomfort.). Absent: respiratory distress, wheezes, rales, rhonchi, stridor Cardiovascular Exam: Present: regular rate, normal rhythm, normal heart sounds. Absent: systolic murmur, diastolic murmur, rubs, gallop, clicks GI/Abdominal exam: Present: soft, normal bowel sounds. Absent: distended, tenderness, guarding, rebound, rigid Extremities exam: Present: normal inspection, full ROM, tenderness (Is palpation of the left shoulder musculature no step-off or crepitation.), normal capillary refill. Absent: pedal edema, joint swelling, calf tenderness Back exam: Present: normal inspection Neurological exam: Present: alert, oriented X3, CN II-XII intact Psychiatric exam: Present: normal affect, normal mood Skin exam: Present: warm, dry, intact, normal color. Absent: rash Course Vital Signs 02/09/24 17:24 Pulse Rate 80 Respiratory 18 Rate Blood Pressure 142/75 O2 Sat by Pulse 100 Oximetry Chest Pain MDM - MDM Patient did get some relief from the pain medication was rendered x-rays were noncontributory no evidence of acute findings EKG was interpreted by me showing no acute changes compared with EKG dated 01/13/2024 and 01/12/2024. I did discuss findings with the patient also with Dr. Panchal patient will be admitted with cardiology consultation. He does demonstrate reproducible shoulder and trapezius muscle tenderness. Was pt. sent in by a medical professional or institution (, PA, [facility], urgent care, hospital, or fdc...) When possible be specific @ -No Did you speak to anyone other than the patient for history (EMS, parent, family, police, friend...)? What history was obtained from this source @ -No Did you review nursing and triage notes (agree or disagree)? Why? @ -I reviewed and agree with nursing and triage notes Were old charts reviewed (outside hosp., previous admission, EMS record, old EKG, old radiological studies, urgent care reports/EKG's, fdc records)? Report findings @ -Previous admission old charts were reviewed Differential Diagnosis (chest pain, altered mental status, abdominal pain women, abdominal pain men, vaginal bleeding, weakness, fever, dyspnea, syncope, headache, dizziness, GI bleed, back pain, seizure, CVA, palpatations, mental health, musculoskeletal)? @ -Chest pain, musculoskeletal pain EKG interpreted by me (3pts min.). @ -As above EKG interpreted by me sinus rhythm at 78 SC interval 184 QRS duration 93 QT/QTc 393/427 low voltage evidence of septal myocardial changes nonspecific T wave configuration this was compared with EKG dated 01/12/2024 and 01/13/2024 X-rays interpreted by me (1pt min.). @ -None done CT interpreted by me (1pt min.). @ -None done U/S interpreted by me (1pt. min.). @ -None done What testing was considered but not performed or refused? (CT, X-rays, U/S, labs)? Why? @ -None What meds were considered but not given or refused? Why? @ -None Did you discuss the management of the patient with other professionals (professionals i.e. , [facility], [facility], lab, RT, psych nurse, rn social services, laser technician, teacher, commanding officer motorized squad, catalytic case operator)? Give summary @ -Dr. Pearce Was smoking cessation discussed for >3mins.? @ -No Was critical care preformed (if so, how long)? @ -31 minutes Were there social determinants of health that impacted care today? How? (Homelessness, low income, unemployed, alcoholism, drug addiction, transportation, low edu. Level, literacy, decrease access to med. care, longterm, rehab)? @ -No Was there de-escalation of care discussed even if they declined (Discuss DNR or withdrawal of care, Hospice)? DNR status @ -No What co-morbidities impacted this encounter? (DM, HTN, Smoking, COPD, CAD, Cancer, CVA, ARF, Chemo, Hep., AIDS, mental health diagnosis, sleep apnea, morbid obesity)? @ -Previous OH, hypertension Was patient admitted / discharged? Hospital course, mention meds given and route, prescriptions, significant lab abnormalities, going to OR and other pertinent info. @ -Hospital course was admitted with cardiology consultation Undiagnosed new problem with uncertain prognosis? @ -No Drug Therapy requiring intensive monitoring for toxicity (Heparin, Nitro, Insulin, Cardizem)? @ -No Were any procedures done? @ -No Diagnosis/symptom? @ -Acute chest pain, myofascial pain Acute, or Chronic, or Acute on Chronic? @ -Acute Uncomplicated (without systemic symptoms) or Complicated (systemic symptoms)? @ -Default Side effects of treatment? @ -No Exacerbation, Progression, or Severe Exacerbation? @ -No Poses a threat to life or bodily function? How? (Chest pain, [place], OH, pneumonia, PE, COPD, DKA, ARF, appy, cholecystitis, CVA, Diverticulitis, Homicidal, Suicidal, threat to staff... and all critical care pts) @ -[Potential Critical Care Time Critical Care Time: Yes Total Critical Care Time: 31 Disposition Clinical Impression: Chest pain, Myofascial pain Disposition: ADMITTED IP TO THIS [facility] Condition: Stable Referrals: Jesús Meraz DO [Primary Care Provider] - 1-2 days Time of Disposition: 20:35 Decision Date: 02/09/24 Decision Time: 20:35
[2024-02-09 18:01] LABS: Basophils % (A) 0 %; Eosinophils # (A) 0.2 k/uL (0-0.7); Eosinophils % (A) 1 %; HCT 40.7 % (39.0-53.0); HGB 13.7 gm/dL (13.0-17.5); Lymphocytes # (A) 1.7 k/uL (1.0-4.8); Lymphocytes % (A) 13 %; MCH 32.5 pg (25.0-35.0); MCHC 33.6 g/dL (31.0-37.0); MCV 96.8 fL (80.0-100.0); Mean Platelet Volume 8.7; Monocytes % (A) 8 %; Neutrophils # (A) 9.8 k/uL (1.3-7.7); Neutrophils % (A) 76 %; Platelet Count 270 k/uL (150-450); RDW 12.9 % (11.5-15.5); WBC 12.8 k/uL (3.8-10.6)
[2024-02-09 18:19] LABS: ALT 33 U/L (4-49); AST 28 U/L (17-59); African American GFR (CKD) >90 (>60 ml/min/1.73 sqM); Alkaline Phosphatase 30 U/L (38-126); Anion Gap 9 mmol/L; Blood Urea Nitrogen 16 mg/dL (9-20); Carbon Dioxide 19 mmol/L (22-30); Chloride 108 mmol/L (98-107); Glucose 91 mg/dL (74-99); Lipase 171 U/L (23-300); Magnesium 1.8 mg/dL (1.6-2.3); Non-African American GFR(CKD) 88 (>60 ml/min/1.73 sqM); Sodium 136 mmol/L (137-145); Total Bilirubin 1.3 mg/dL (0.2-1.3); Total Protein 6.6 g/dL (6.3-8.2)
[2024-02-09 18:21] LABS: Partial Thromboplastin Time 24.9 sec (22.0-30.0); Prothrombin Time 11.1 sec (10.0-12.5)
--- NOTE | 2024-02-09 18:24 | XR ---
EXAMINATION TYPE: XR chest 2V DATE OF EXAM: 02/09/2024 COMPARISON: 01/12/2024 HISTORY: Shortness of breath TECHNIQUE: Frontal and lateral views of the chest are obtained. FINDINGS: Scattered senescent parenchymal changes noted. Hyperinflation compatible with COPD. No evidence for infiltrate. No evidence for atelectasis. Heart size is stable. Mediastinal structures are stable and grossly unremarkable. No evidence for hilar prominence. Degenerative changes dorsal spine. IMPRESSION: 1. No evidence for acute pulmonary disease.
[2024-02-09 18:27] LABS: NT-Pro-B-Type Natriuretic Pept 3700 pg/mL
[2024-02-09] MEDS: MORPHINE SULFATE 4 MG/ML SYRINGE IV STA (18:46)
[2024-02-09] MEDS: SODIUM CHLORIDE 0.9% 1,000 ML IV STA (18:50)
[2024-02-09 18:54] LABS: Potassium 4.2 mmol/L (3.5-5.1)
--- NOTE | 2024-02-09 20:36 | ED ---
Medical Decision Making - Lab Data Result diagrams: 02/09/24 17:40 02/09/24 17:40 Lab Results 02/09/24 02/09/24 02/09/24 Range/Units 17:40 17:40 17:40 WBC 12.8 H (3.8-10.6) k/uL RBC 4.20 L (4.30-5.90) m/uL Hgb 13.7 (13.0-17.5) gm/dL Hct 40.7 (39.0-53.0) % MCV 96.8 (80.0-100.0) fL MCH 32.5 (25.0-35.0) pg MCHC 33.6 (31.0-37.0) g/dL RDW 12.9 (11.5-15.5) % Plt Count 270 (150-450) k/uL MPV 8.7 Neutrophils % 76 % Lymphocytes % 13 % Monocytes % 8 % Eosinophils % 1 % Basophils % 0 % Neutrophils # 9.8 H (1.3-7.7) k/uL Lymphocytes # 1.7 (1.0-4.8) k/uL Monocytes # 1.0 (0-1.0) k/uL Eosinophils # 0.2 (0-0.7) k/uL Basophils # 0.0 (0-0.2) k/uL PT 11.1 (10.0-12.5) sec INR 1.0 (<1.2) APTT 24.9 (22.0-30.0) sec D-Dimer 0.43 (<0.60) mg/L FEU Sodium 136 L (137-145) mmol/L Potassium 4.2 (3.5-5.1) mmol/L Chloride 108 H (98-107) mmol/L Carbon Dioxide 19 L (22-30) mmol/L Anion Gap 9 mmol/L BUN 16 (9-20) mg/dL Creatinine 0.84 (0.66-1.25) mg/dL Est GFR (CKD-EPI)AfAm >90 (>60 ml/min/1.73 sqM) Est GFR (CKD-EPI)NonAf 88 (>60 ml/min/1.73 sqM) Glucose 91 (74-99) mg/dL Calcium 9.0 (8.4-10.2) mg/dL Magnesium 1.8 (1.6-2.3) mg/dL Total Bilirubin 1.3 (0.2-1.3) mg/dL AST 28 (17-59) U/L ALT 33 (4-49) U/L Alkaline Phosphatase 30 L (38-126) U/L Troponin I (0.000-0.034) ng/mL NT-Pro-B Natriuret Pep 3700 pg/mL Total Protein 6.6 (6.3-8.2) g/dL Albumin 4.0 (3.5-5.0) g/dL Lipase 171 (23-300) U/L 02/09/24 Range/Units 17:40 WBC (3.8-10.6) k/uL RBC (4.30-5.90) m/uL Hgb (13.0-17.5) gm/dL Hct (39.0-53.0) % MCV (80.0-100.0) fL MCH (25.0-35.0) pg MCHC (31.0-37.0) g/dL RDW (11.5-15.5) % Plt Count (150-450) k/uL MPV Neutrophils % % Lymphocytes % % Monocytes % % Eosinophils % % Basophils % % Neutrophils # (1.3-7.7) k/uL Lymphocytes # (1.0-4.8) k/uL Monocytes # (0-1.0) k/uL Eosinophils # (0-0.7) k/uL Basophils # (0-0.2) k/uL PT (10.0-12.5) sec INR (<1.2) APTT (22.0-30.0) sec D-Dimer (<0.60) mg/L FEU Sodium (137-145) mmol/L Potassium (3.5-5.1) mmol/L Chloride (98-107) mmol/L Carbon Dioxide (22-30) mmol/L Anion Gap mmol/L BUN (9-20) mg/dL Creatinine (0.66-1.25) mg/dL Est GFR (CKD-EPI)AfAm (>60 ml/min/1.73 sqM) Est GFR (CKD-EPI)NonAf (>60 ml/min/1.73 sqM) Glucose (74-99) mg/dL Calcium (8.4-10.2) mg/dL Magnesium (1.6-2.3) mg/dL Total Bilirubin (0.2-1.3) mg/dL AST (17-59) U/L ALT (4-49) U/L Alkaline Phosphatase (38-126) U/L Troponin I 0.018 (0.000-0.034) ng/mL NT-Pro-B Natriuret Pep pg/mL Total Protein (6.3-8.2) g/dL Albumin (3.5-5.0) g/dL Lipase (23-300) U/L Disposition Clinical Impression: Chest pain, Myofascial pain, Elevated brain natriuretic peptide (BNP) level Disposition: ADMITTED IP TO THIS [facility] Condition: Stable Referrals: Jesús Meraz DO [Primary Care Provider] - 1-2 days Time of Disposition: 20:36 Decision Date: 02/09/24 Decision Time: 20:36
[2024-02-09] MEDS ORDERED: NALOXONE 0.4 MG/ML 1 ML VIAL IV PRN (20:37)
[2024-02-09] MEDS ORDERED: NITROGLYCERIN SL TABS 0.4 MG TAB SUBLINGUAL PRN (20:39)
[2024-02-09] MEDS: METOPROLOL TARTRATE 25 MG TAB PO SCH (22:18)
[2024-02-09] MEDS: ATORVASTATIN 80 MG TAB PO SCH (22:18)
[2024-02-09] MEDS: TICAGRELOR 90 MG TAB PO SCH (22:18)
--- NOTE | 2024-02-09 23:06 | P.HPIM ---
History of Present Illness H&P Date: 02/09/24 Chief Complaint: Chest pain 73-year-old male with a history of hypertension, hyperlipidemia, CAD, CHF, a recent MD with 100% obstruction of the LAD status post stenting. Patient appears currently has an EF of 25% who presents with complaints the onset this morning of chest pain with radiation to the left shoulder down the left arm. Was severe this morning he did take nitroglycerin with some improvement. He still has some dull pain to the left shoulder however. He also to his upper left back. No trauma reported no fevers chills sweats no cough or phlegm production. Level completed reviewed reviewed JVD, hemoglobin of 13.7 and platelet count of 270, sodium 136, potassium 4.2, BUNs/creatinine of 16/0.84 and blood glucose of 91, troponin is 0.018, BNP of 3700 EKG is unremarkable for any acute ST or T wave changes Chest x-ray is negative for any acute pulmonary process Review of Systems REVIEW OF SYSTEMS: CONSTITUTIONAL: No fever, no malaise, no fatigue. HEENT: No recent visual problems or hearing problems. Denied any sore throat. CARDIOVASCULAR: No chest pain, orthopnea, PND, no palpitations, no syncope. PULMONARY: No shortness of breath, no cough, no hemoptysis. GASTROINTESTINAL: No diarrhea, no nausea, no vomiting, no abdominal pain. NEUROLOGICAL: No headaches, no weakness, no numbness. HEMATOLOGICAL: Denies any bleeding or petechiae. GENITOURINARY: Denies any burning micturition, frequency, or urgency. MUSCULOSKELETAL/RHEUMATOLOGICAL: Denies any joint pain, swelling, or any muscle pain. ENDOCRINE: Denies any polyuria or polydipsia. The rest of the 14-point review of systems is negative. Past Medical History Past Medical History: Eye Disorder, Hypertension, Osteoarthritis (OA) Additional Past Medical History / Comment(s): cataract RIGHT Last Myocardial Infarction Date:: 01/12/24 History of Any Multi-Drug Resistant Organisms: None Reported Past Surgical History: Breast Surgery Additional Past Surgical History / Comment(s): gynecomastia surg. as child, LEFT CATARACT SX 04/14/15 Past Anesthesia/Blood Transfusion Reactions: No Reported Reaction Date of Last Stent Placement:: 01/12/24 Past Psychological History: No Psychological Hx Reported Smoking Status: Never smoker Past Alcohol Use History: None Reported Past Drug Use History: None Reported - Past Family History Father Family Medical History: Cancer Additional Family Medical History / Comment(s): "skin cancer and blood leukemia" Medications and Allergies Home Medications Medication Instructions Recorded Confirmed Type Fexofenadine HCl [Alyse Allergy] 180 mg PO DAILY 01/12/24 01/12/24 History Multivitamins, Thera [Multivitamin 1 tab PO DAILY 01/12/24 01/12/24 History (formulary)] Aspirin 81 mg PO DAILY 30 Days #30 tab 01/15/24 Rx Atorvastatin [Lipitor] 80 mg PO HS #30 tab 01/15/24 Rx Dapagliflozin Propanediol [Farxiga] 10 mg PO DAILY 30 Days #30 tab 01/15/24 Rx Metoprolol Tartrate [Lopressor] 25 mg PO BID 30 Days #60 tab 01/15/24 Rx Nitroglycerin Sl Tabs [Nitrostat] 0.4 mg SUBLINGUAL Q5M PRN #30 tab 01/15/24 Rx Spironolactone [Aldactone] 12.5 mg PO DAILY 30 Days #30 tab 01/15/24 Rx Ticagrelor [Brilinta] 90 mg PO BID 30 Days #60 tab 01/15/24 Rx lisinopriL [Zestril] 2.5 mg PO DAILY 30 Days #30 tab 01/15/24 Rx Allergies Allergy/AdvReac Type Severity Reaction Status Date / Time No Known Allergies Allergy Verified 02/09/24 17:27 Physical Exam Vitals: Vital Signs Pulse Resp BP Pulse Ox 02/09/24 17:24 80 18 142/75 100 Intake and Output 02/09/24 02/09/24 02/09/24 06:59 14:59 22:59 Other: Weight 81.647 kg General appearance: Present: average body habitus, cooperative, no acute distress Eyes: Present: anicteric sclerae, EOMI, PERRLA, normal appearance Neck: Present: normal ROM. Absent: lymphadenopathy, rigidity, thyromegaly Carotids: negative: bruit present Thyroid: bilateral: normal size, negative: enlarged, nodule Respiratory: bilateral: CTA, negative: rales, rhonchi, wheezing Cardiovascular: regular: normal: S1, S2 General gastrointestinal: Present: normal bowel sounds, soft. Absent: distended , organomegaly, tenderness Genitourinary Comment(s): deferred Integumentary: Present: normal turgor. Absent: jaundiced, rash, ulcer Neurologic: Present: CNII-XII intact. Absent: focal deficits Musculoskeletal: Present: gait normal, strength equal bilaterall Psychiatric: Present: A&O x's 3, appropriate affect, intact judgment & insight Results CBC & Chem 7: 02/09/24 17:40 02/09/24 17:40 Labs: Abnormal Lab Results - Last 24 Hours (Table) 02/09/24 02/09/24 Range/Units 17:40 17:40 WBC 12.8 H (3.8-10.6) k/uL RBC 4.20 L (4.30-5.90) m/uL Neutrophils # 9.8 H (1.3-7.7) k/uL Sodium 136 L (137-145) mmol/L Chloride 108 H (98-107) mmol/L Carbon Dioxide 19 L (22-30) mmol/L Alkaline Phosphatase 30 L (38-126) U/L Assessment and Plan Assessment: 1. Chest pain -Patient has recent history of MD with 100% obstruction of the LAD and is status post stent placement -- Echocardiogram completed reveals an EF of 25% -Initial workup completed in ED including EKG and troponin is unremarkable -We will admit to telemetry and monitor EKG and trend troponin -Patient will continue with aspirin 81 mg daily, Lipitor 80 mg p.o. nightly and metoprolol 25 mg twice daily; Brilinta 90 mg twice daily; sublingual nitroglycerin for chest pain -Consult cardiology for further recommendations 2. Elevated BNP; chest x-ray does not reveal any pulmonary vascular congestion -Patient takes Aldactone 25 mg daily along with Farxiga 10 mg daily -Currently not taking any other diuretics -Patient clinically does not seem to be fluid overloaded -We will monitor strict MELE's, daily weights, low-salt and fluid restricted diet -Await further recommendations from cardiology 3. Hypertension; lisinopril 10 mg daily, metoprolol 25 mg twice daily 4. Hyperlipidemia; Lipitor 80 mg p.o. nightly 5. Seasonal allergies; will continue with Alyse 180 mg daily DVT prophylaxis; SCDs CODE STATUS; full code
[2024-02-10] MEDS: DAPAGLIFLOZIN PROPANEDIOL 10 MG TABLET PO SCH ×2 (09:22→11:12)
[2024-02-10] MEDS: lisinopriL 5 MG TAB PO SCH (09:22)
[2024-02-10] MEDS: SPIRONOLACTONE 25 MG TAB PO SCH (09:22)
[2024-02-10] MEDS: LORATADINE 10 MG TAB PO SCH (09:23)
[2024-02-10] MEDS: ASPIRIN 81 MG PO SCH (09:23)
[2024-02-10] MEDS: MULTIVITAMINS, THERA 1 EACH TAB PO SCH (09:23)
[2024-02-10 09:26] LABS: BUN/Creat Ratio 17.11 Ratio (12.00-20.00); Blood Urea Nitrogen 15.4 mg/dL (9.0-27.0); Carbon Dioxide 22.4 mmol/L (21.6-31.8); Chloride 104 mmol/L (96-109); Glucose 122 mg/dL (70-110); Potassium 3.9 mmol/L (3.5-5.5); Sodium 139 mmol/L (135-145)
[2024-02-10 09:31] LABS: HCT 40.2 % (39.6-50.0); HGB 13.2 g/dL (13.0-17.0); MCH 31.5 pg (27.0-32.0); MCHC 32.8 g/dL (32.0-37.0); MCV 95.9 FL (80.0-97.0); Mean Platelet Volume 11.1 FL (9.5-12.2); NRBC Per 100 WBC 0 X 10*3/uL (0.00-0.01); Platelet Count 221 X 10*3/uL (140-440); RBC 4.19 X 10*6/uL (4.40-5.60); RDW 12.9 % (11.5-14.5); WBC 13.15 X 10*3/uL (4.50-10.00)
[2024-02-10 11:17] LABS: Basophils # (A) 0.02 X 10*3/uL (0.00-0.10); Basophils % (A) 0.2 %; Eosinophils # (A) 0.01 X 10*3/uL (0.04-0.35); Eosinophils % (A) 0.1 %; Lymphocytes # (A) 0.99 X 10*3/uL (0.90-5.00); Lymphocytes % (A) 7.5 %; Monocytes # (A) 1.78 X 10*3/uL (0.20-1.00); Monocytes % (A) 13.5 %; Neutrophils # (A) 10.31 X 10*3/uL (1.80-7.70); Neutrophils % (A) 78.4 %
--- NOTE | 2024-02-10 11:30 | P.CRDCN ---
History of Present Illness Consult date: 02/10/24 Requesting physician: James Pearce Reason for Consult (text): chest pain, elevated BNP Chief complaint: left shoulder and chest pain History of present illness: This is a pleasant 73-year-old gentleman who follows in the office with Dr. Pollack. He has a recent history in December of this year of a STEMI at which time he was found to have 100% lesion in the LAD and underwent PCI, ischemic card iomyopathy with an ejection fraction of 25 to 30% currently wearing a LifeVest. Was seen in the office on Sunday by the nurse practitioner, Leyda, at which time he was feeling "great ". He presented to the hospital with complaints of left shoulder pain which seems to be quite chronic for him as he mentions he has been having on and off for years as well as lower sternal discomfort with deep breath ing causing him to cough. Left shoulder pain seems to be reproducible occurring with certain movements and positions. EKG does not show significant changes compared to previous. Troponins came in at 0.018, and less than 0.012 x 2. Renal function is stable. NT proBNP 3700. Upon examination the patient is resting comfortably on a stretcher in the ER awaiting a bed upstairs. He is overall feeling somewhat better in regards to the shoulder discomfort which seems to be his usual pattern. He continues to have sharp lower sternal pain with deep breathing causing cough. He has no symptoms that remind him of what he felt with his [place] last month. His breathing has been stable. He has no jairo a. He has no orthopnea or PND. He has had no potation's or discharges from the LifeVest. He has mild positional dizziness that is gradually improving. Past Medical History Past Medical History: Chest Pain / Angina, Eye Disorder, Hypertension, Myocardial Infarction ([place]), Osteoarthritis (OA) Additional Past Medical History / Comment(s): cataract bilateral Last Myocardial Infarction Date:: 01/19/24 History of Any Multi-Drug Resistant Organisms: None Reported Past Surgical History: Breast Surgery Additional Past Surgical History / Comment(s): gynecomastia surg. as child, LEFT CATARACT SX 04/14/15, right cataract Past Anesthesia/Blood Transfusion Reactions: No Reported Reaction Date of Last Stent Placement:: 01/12/24 Past Psychological History: No Psychological Hx Reported Smoking Status: Never smoker Past Alcohol Use History: None Reported Past Drug Use History: None Reported - Past Family History Father Family Medical History: Cancer Additional Family Medical History / Comment(s): "skin cancer and blood leukemia" Medications and Allergies Home Medications Medication Instructions Recorded Confirmed Type Fexofenadine HCl [Alyse Allergy] 180 mg PO DAILY 01/12/24 02/10/24 History Multivitamins, Thera [Multivitamin 1 tab PO DAILY 01/12/24 02/10/24 History (formulary)] Aspirin 81 mg PO DAILY 30 Days #30 tab 01/15/24 02/10/24 Rx Atorvastatin [Lipitor] 80 mg PO HS #30 tab 01/15/24 02/10/24 Rx Metoprolol Tartrate [Lopressor] 25 mg PO BID 30 Days #60 tab 01/15/24 02/10/24 Rx Nitroglycerin Sl Tabs [Nitrostat] 0.4 mg SUBLINGUAL Q5M PRN #30 tab 01/15/24 02/10/24 Rx Spironolactone [Aldactone] 12.5 mg PO DAILY 30 Days #30 tab 01/15/24 02/10/24 Rx Ticagrelor [Brilinta] 90 mg PO BID 30 Days #60 tab 01/15/24 02/10/24 Rx Losartan [Cozaar] 12.5 mg PO DAILY 02/10/24 02/10/24 History lisinopriL [Zestril] 2.5 mg PO DAILY 02/10/24 02/10/24 History Allergies Allergy/AdvReac Type Severity Reaction Status Date / Time No Known Allergies Allergy Verified 02/10/24 09:13 Physical Exam Vitals: Vital Signs Pulse Resp BP Pulse Ox 02/10/24 09:21 94 16 156/75 94 L 02/10/24 04:00 82 18 115/60 95 02/10/24 02:00 86 18 115/59 94 L 02/09/24 21:00 97 18 147/65 98 02/09/24 19:00 87 18 139/85 98 02/09/24 17:24 80 18 142/75 100 Intake and Output 02/09/24 02/10/24 02/10/24 22:59 06:59 14:59 Output Total 550 Balance -550 Output: Urine 550 Other: Weight 81.647 kg 81.647 kg PHYSICAL EXAMINATION: This is a 73-year-old gentleman in no apparent distress at the time of my examination. VITAL SIGNS: Reviewed. HEENT: Head is atraumatic, normocephalic. Pupils are equal, round. Sclerae anicteric. Conjunctivae are clear. Mucous membranes of the mouth are moist. Neck is supple. There is no elevated jugular venous pressure. No carotid bruit is h eard. CHEST EXAMINATION: Clear to auscultation bilaterally. No wheezes rales or rhonchi. Respirations even and nonlabored. HEART EXAMINATION: Heart regular, positive S1 and S2. No S3. No S4. Soft systolic murmur. ABDOMEN: Soft, nontender. Bowel sounds are heard. No organomegaly noted. EXTREMITIES: 2+ peripheral pulses with no evidence of peripheral edema and no calf tenderness noted. NEUROLOGIC EXAMINATION: Patient is awake, alert and oriented x3. Results 02/10/24 05:33 02/10/24 05:33 Cardiac Enzymes 02/09/24 02/09/24 02/09/24 Range/Units 17:40 17:40 20:56 AST 28 (17-59) U/L Troponin I 0.018 <0.012 (0.000-0.034) ng/mL 02/10/24 Range/Units 00:55 AST (17-59) U/L Troponin I <0.012 (0.000-0.034) ng/mL Coagulation 02/09/24 Range/Units 17:40 PT 11.1 (10.0-12.5) sec APTT 24.9 (22.0-30.0) sec CBC 02/09/24 02/10/24 Range/Units 17:40 05:33 WBC 12.8 H 13.15 H (3.8-10.6) k/uL RBC 4.20 L 4.19 L (4.30-5.90) m/uL Hgb 13.7 13.2 (13.0-17.5) gm/dL Hct 40.7 40.2 (39.0-53.0) % Plt Count 270 221 (150-450) k/uL Comprehensive Metabolic Panel 02/09/24 02/10/24 Range/Units 17:40 05:33 Sodium 136 L 139 (137-145) mmol/L Potassium 4.2 3.9 (3.5-5.1) mmol/L Chloride 108 H 104 (98-107) mmol/L Carbon Dioxide 19 L 22.4 (22-30) mmol/L BUN 16 15.4 (9-20) mg/dL Creatinine 0.84 0.9 (0.66-1.25) mg/dL Glucose 91 122 H (74-99) mg/dL Calcium 9.0 9.0 (8.4-10.2) mg/dL AST 28 (17-59) U/L ALT 33 (4-49) U/L Alkaline Phosphatase 30 L (38-126) U/L Total Protein 6.6 (6.3-8.2) g/dL Albumin 4.0 (3.5-5.0) g/dL Current Medications Generic Name Dose Route Start Last Admin Trade Name Freq PRN Reason Stop Dose Admin Acetaminophen 650 mg 02/09/24 20:37 Acetaminophen Tab 325 Mg Tab PO Q6HR PRN Mild Pain or Fever > 100.5 Aspirin 81 mg 02/10/24 09:00 02/10/24 09:23 Aspirin 81 Mg PO 81 mg DAILY RADHA Administration Atorvastatin Calcium 80 mg 02/09/24 21:00 02/09/24 22:18 Atorvastatin 80 Mg Tab PO 80 mg HS RADHA Administration Dapagliflozin 10 mg 02/10/24 10:30 02/10/24 11:12 Dapagliflozin Propanediol 10 Mg Tablet PO Not Given DAILY [facility] Loratadine 10 mg 02/11/24 09:00 Loratadine 10 Mg Tab PO DAILY [facility] Losartan Potassium 25 mg 02/11/24 09:00 Losartan 25 Mg Tab PO DAILY [facility] Metoprolol Tartrate 25 mg 02/09/24 21:00 02/10/24 09:22 Metoprolol Tartrate 25 Mg Tab PO 25 mg BID RADHA Administration Multivitamins 1 each 02/10/24 09:00 02/10/24 09:23 Multivitamins, Thera 1 Each Tab PO 1 each DAILY [facility] Administration Naloxone HCl 0.2 mg 02/09/24 20:37 Naloxone 0.4 Mg/Ml 1 Ml Vial IV Q2M PRN Opioid Reversal Nitroglycerin 0.4 mg 02/09/24 20:39 Nitroglycerin Sl Tabs 0.4 Mg Tab SUBLINGUAL Q5M PRN Chest Pain Spironolactone 25 mg 02/11/24 09:00 Spironolactone 25 Mg Tab PO DAILY RADHA Ticagrelor 90 mg 02/09/24 21:00 02/10/24 09:27 Ticagrelor 90 Mg Tab PO 90 mg BID RADHA Administration Intake and Output 02/09/24 02/10/24 02/10/24 22:59 06:59 14:59 Output Total 550 Balance -550 Output: Urine 550 Other: Weight 81.647 kg 81.647 kg 02/10/24 05:33 02/10/24 05:33 Assessment and Plan Assessment: 1 symptoms of the left shoulder discomfort as well as lower sternal pain, both reproducible, acute coronary event has been ruled out #2 status post recent STEMI with stenting to the LAD #3 ischemic cardiomyopathy with most recent ejection fraction 25 to 30%, currently wearing LifeVest, NT proBNP 3700 #4 hyperlipidemia Plan: From cardiology's perspective we will obtain a 2D echo with Doppler study to assess cardiac structure and function. We will increase Aldactone and switch lisinopril to losartan 25 mg p.o. daily as he was taking at home. We will add Farxiga. Will continue to follow the patient and provide further recommendations accordingly. [employer] note has been reviewed, I agree with a documented findings and plan of care. Patient was seen and examined.
[2024-02-10] MEDS: ACETAMINOPHEN TAB 325 MG TAB PO PRN (18:10)
[2024-02-11 07:50] LABS: African American GFR (CKD) >90 (>60 ml/min/1.73 sqM); Anion Gap 8 mmol/L; Blood Urea Nitrogen 13 mg/dL (9-20); Calcium 8.8 mg/dL (8.4-10.2); Carbon Dioxide 24 mmol/L (22-30); Chloride 106 mmol/L (98-107); Glucose 114 mg/dL (74-99); Non-African American GFR(CKD) 87 (>60 ml/min/1.73 sqM); Sodium 138 mmol/L (137-145)
[2024-02-11] MEDS: LOSARTAN 25 MG TAB PO SCH (08:20)
[2024-02-11] MEDS: LORATADINE 10 MG TAB PO SCH (08:20)
[2024-02-11] MEDS: SPIRONOLACTONE 25 MG TAB PO SCH (08:20)
[2024-02-11] MEDS: ADENOSINE 3 MG/ML 2 ML VIAL IVP STA (09:37)
[2024-02-11 09:41] LABS: Glucose,Whole Blood 185 mg/dL (70-110)
[2024-02-11] MEDS: DILTIAZEM 125 MG in SODIUM CHLORIDE 0.9% 100 ML IV SCH (09:43)
[2024-02-11] MEDS: DILTIAZEM DRIP BOLUS FROM BAG 1 MG SOLN IV ONE (09:44)
--- NOTE | 2024-02-11 10:19 | P.PN ---
Subjective Progress Note Date: 02/11/24 History of present illness: This is a pleasant 73-year-old gentleman who follows in the office with Dr. Pollack. He has a recent history in December of this year of a STEMI at which time he was found to have 100% lesion in the LAD and underwent PCI, ischemic cardiomyopathy with an ejection fraction of 25 to 30% currently wearing a LifeVest. Was seen in the office on Sunday by the nurse practitioner, Leyda, at which time he was feeling "great ". He presented to the hospital with complaints of left shoulder pain which seems to be quite chronic for him as he mentions he has been having on and off for years as well as lower sternal discomfort with deep breathing causing him to cough. Left shoulder pain seems to be reproducible occurring with certain movements and positions. EKG does not show significant changes compared to previous. Troponins came in at 0.018, and less than 0.012 x 2. Renal function is stable. NT proBNP 3700. Upon examination the patient is resting comfortably on a stretcher in the ER awaiting a bed upstairs. He is overall feeling somewhat better in regards to the shoulder discomfort which seems to be his usual pattern. He continues to have sharp lower sternal pain with deep breathing causing cough. He has no symptoms that remind him of what he felt with his [place] last month. His breathing has been stable. He has no edema. He has no orthopnea or PND. He has had no potation's or discharges from the LifeVest. He has mild positional dizziness that is gradually improving. 02/10 Patient states that he was expecting to get an echocardiogram today and probably go home. Unfortunately, patient was found to be in A-fib with RVR this morning heart rate was running between the 130s and 150s. Blood pressure 97/64. A-Team was called in order for patient to obtain IV medications. 1 dose of adenosine 6 mg given, heart rate slowed but did not convert. Patient was then started on IV Cardizem bolus of 10 mg followed by 10 mg drip and IV fluid bolus of 250 mL. Yesterday, Aldactone was increased and Farxiga was added. PHYSICAL EXAMINATION: This is a 73-year-old gentleman in no apparent distress at the time of my examination. VITAL SIGNS: Reviewed. HEENT: Head is atraumatic, normocephalic. Pupils are equal, round. Sclerae anicteric. Conjunctivae are clear. There is no elevated jugular venous pressure. CHEST EXAMINATION: Clear to auscultation bilaterally. No wheezes rales or rhonchi. Respirations even and nonlabored. HEART EXAMINATION: Heart irregular, positive S1 and S2. No S3. No S4. Soft systolic murmur. Tachycardic secondary to atrial fibrillation with RVR ABDOMEN: Soft, nontender. Bowel sounds are heard. No organomegaly noted. EXTREMITIES: 2+ peripheral pulses with no evidence of peripheral edema and no calf tenderness noted. NEUROLOGIC EXAMINATION: Patient is awake, alert and oriented x3. Assessment Symptoms of the left shoulder discomfort as well as lower sternal pain, both reproducible, acute coronary event has been ruled out Status post recent STEMI with stenting to the LAD Ischemic cardiomyopathy with most recent ejection fraction 25 to 30%, currently wearing LifeVest, NT proBNP 3700 Hyperlipidemia New onset paroxysmal atrial fibrillation with RVR Plan: Obtain 2D echo with Doppler study to assess cardiac structure and function Continue other cardiac medications: Aspirin 81 mg daily, Lipitor 80 mg daily, Farxiga 10 mg daily, losartan 25 mg daily, Lopressor 25 mg twice daily, Aldactone 25 mg daily and Brilinta 90 mg twice daily Patient started on Cardizem bolus followed by drip at 10 mg/h Start patient on Eliquis 5 mg twice daily. Continue telemetry monitoring Nurse practitioner note has been reviewed, I agree with documented findings and plan of care. Patient was seen and examined. Objective - Vital Signs Vital signs: Vital Signs Temp 99.1 F 02/11/24 08:00 Pulse 154 H 02/11/24 09:03 Resp 16 02/11/24 07:00 BP 97/64 02/11/24 09:03 Pulse Ox 99 02/11/24 09:03 FiO2 Intake & Output 02/10/24 02/11/24 02/11/24 18:59 06:59 18:59 Weight 81.647 kg Other: Voiding Method Toilet # Voids 0 - Labs CBC & Chem 7: 02/10/24 05:33 02/11/24 07:05 Labs: Abnormal Lab Results - Last 24 Hours (Table) 02/10/24 02/11/24 Range/Units 05:33 07:05 WBC 13.15 H (4.50-10.00) X 10*3/uL RBC 4.19 L (4.40-5.60) X 10*6/uL Neutrophils # 10.31 H (1.80-7.70) X 10*3/uL Monocytes # 1.78 H (0.20-1.00) X 10*3/uL Eosinophils # 0.01 L (0.04-0.35) X 10*3/uL Glucose 114 H (74-99) mg/dL
[2024-02-11] MEDS: APIXABAN 5 MG TAB PO SCH (11:31)
[2024-02-11] MEDS: METOPROLOL TARTRATE 25 MG TAB PO STA (14:17)
--- NOTE | 2024-02-11 14:25 | P.PN ---
Subjective Progress Note Date: 02/10/24 73-year-old male with a history of hypertension, hyperlipidemia, CAD, CHF, a recent AK with 100% obstruction of the LAD status post stenting. Patient appears currently has an EF of 25% who presents with complaints the onset this morning of chest pain with radiation to the left shoulder down the left arm. Was severe this morning he did take nitroglycerin with some improvement. He still has some dull pain to the left shoulder however. He also to his upper left back. No trauma reported no fevers chills sweats no cough or phlegm production. Level completed reviewed reviewed JVD, hemoglobin of 13.7 and platelet count of 270, sodium 136, potassium 4.2, BUNs/creatinine of 16/0.84 and blood glucose of 91, troponin is 0.018, BNP of 3700 EKG is unremarkable for any acute ST or T wave changes Chest x-ray is negative for any acute pulmonary process 24-hour interval change 02/10/2024 Patient is seen and evaluated resting in bed Vital signs reviewed and stable with a temperature of 98.6, pulse 94, respirations 16 and blood pressure 156/75 O2 saturation between 94 to 95% on room air Lab review shows a WBC of 13.1, hemoglobin of 13.2 and platelet count of 221, sodium 139, potassium 3.9, BUNs/creatinine of 15.4/0.9 and blood glucose of 122 Patient has been evaluated by cardiology; patient is status post recent STEMI with stent to LAD; echocardiogram revealed an EF of 25 to 30% at that time patient; he is wearing LifeVest --Patient is evaluated by cardiology and is recommended 2D echo with Doppler to assess cardiac structure and function -- Patient has been placed on Aldactone and lisinopril is changed to losartan 25 mg daily; plan to add Farxiga pending patient tolerance --per patient's at bedside, patient was placed on Farxiga in the past but did not have insurance coverage for this medication Objective - Vital Signs Vital signs: Vital Signs Temp Pulse 94 02/10/24 09:21 Resp 16 02/10/24 09:21 BP 156/75 02/10/24 09:21 Pulse Ox 94 L 02/10/24 09:21 FiO2 Intake & Output 02/09/24 02/10/24 02/10/24 18:59 06:59 18:59 Output Total 550 Balance -550 Weight 81.647 kg 81.647 kg 81.647 kg Output: Urine 550 - Exam - Constitutional General appearance: Present: average body habitus, cooperative, no acute distress - EENT Eyes: Present: anicteric sclerae, EOMI, PERRLA, normal appearance ENT: Present: hearing grossly normal, normal oropharynx Ears: bilateral: normal - Neck Neck: Present: normal ROM. Absent: lymphadenopathy, rigidity, thyromegaly Carotids: negative: bruit present Thyroid: bilateral: normal size, negative: enlarged, nodule - Respiratory Respiratory: bilateral: CTA, negative: rales, rhonchi, wheezing - Cardiovascular Rhythm: regular Heart sounds: normal: S1, S2 Abnormal Heart Sounds: Absent: systolic murmur, diastolic murmur - Gastrointestinal General gastrointestinal: Present: normal bowel sounds, soft. Absent: distended, organomegaly, tenderness - Genitourinary Genitourinary Comment(s): deferred - Integumentary Integumentary: Present: normal turgor. Absent: jaundiced, rash, ulcer - Neurologic Neurologic: Present: CNII-XII intact. Absent: focal deficits - Musculoskeletal Musculoskeletal: Present: gait normal, strength equal bilaterally - Psychiatric Psychiatric: Present: A&O x's 3, appropriate affect, intact judgment & insight - Labs CBC & Chem 7: 02/10/24 05:33 02/11/24 07:05 Labs: Abnormal Lab Results - Last 24 Hours (Table) 02/09/24 02/09/24 02/10/24 Range/Units 17:40 17:40 05:33 WBC 12.8 H 13.15 H (3.8-10.6) k/uL RBC 4.20 L 4.19 L (4.30-5.90) m/uL Neutrophils # 9.8 H 10.31 H (1.3-7.7) k/uL Monocytes # 1.78 H (0.20-1.00) X 10*3/uL Eosinophils # 0.01 L (0.04-0.35) X 10*3/uL Sodium 136 L (137-145) mmol/L Chloride 108 H (98-107) mmol/L Carbon Dioxide 19 L (22-30) mmol/L Anion Gap (4.00-12.00) mmol/L Glucose (70-110) mg/dL Alkaline Phosphatase 30 L (38-126) U/L 02/10/24 Range/Units 05:33 WBC (3.8-10.6) k/uL RBC (4.30-5.90) m/uL Neutrophils # (1.3-7.7) k/uL Monocytes # (0.20-1.00) X 10*3/uL Eosinophils # (0.04-0.35) X 10*3/uL Sodium (137-145) mmol/L Chloride (98-107) mmol/L Carbon Dioxide (22-30) mmol/L Anion Gap 12.60 H (4.00-12.00) mmol/L Glucose 122 H (70-110) mg/dL Alkaline Phosphatase (38-126) U/L Assessment and Plan Assessment: 1. Chest pain -Patient has recent history of AK with 100% obstruction of the LAD and is status post stent placement -- Echocardiogram completed reveals an EF of 25% -Initial workup completed in ED including EKG and troponin is unremarkable -We will admit to telemetry and monitor EKG and trend troponin -Patient will continue with aspirin 81 mg daily, Lipitor 80 mg p.o. nightly and metoprolol 25 mg twice daily; Brilinta 90 mg twice daily; sublingual nitroglycerin for chest pain -Consult cardiology for further recommendations 2. Elevated BNP; chest x-ray does not reveal any pulmonary vascular congestion -Patient takes Aldactone 25 mg daily along with Farxiga 10 mg daily -Currently not taking any other diuretics -Patient clinically does not seem to be fluid overloaded -We will monitor strict MELE's, daily weights, low-salt and fluid restricted diet -Await further recommendations from cardiology 3. Hypertension; lisinopril 10 mg daily, metoprolol 25 mg twice daily 4. Hyperlipidemia; Lipitor 80 mg p.o. nightly 5. Seasonal allergies; will continue with Alyse 180 mg daily DVT prophylaxis; SCDs CODE STATUS; full code
--- NOTE | 2024-02-11 16:15 | CA ---
Transthoracic Echo Report Name: Jin Fischer Age: 73 Gender: M : 1950 Exam Date: 02/11/2024 13:19 Exam Location: [facility] Ht (in): 71 Wt (lb): 180 Ordering Physician: Bj Granados MD ([id number]) Attending/Referring Phys: Vessel Manager Cierra Tinsley RDCS Procedure CPT: Indications: CAD Cardiac Hx: life vest Technical Quality: Good Contrast 1: Total Dose (mL): Contrast 2: Total Dose (mL): MEASUREMENTS (Male / Female) Normal Values 2D ECHO LV Diastolic Diameter PLAX 4.9 cm 4.2 - 5.9 / 3.9 - 5.3 cm LV Systolic Diameter PLAX 4.2 cm IVS Diastolic Thickness 1.1 cm 0.6 - 1.0 / 0.6 - 0.9 cm LVPW Diastolic Thickness 1.1 cm 0.6 - 1.0 / 0.6 - 0.9 cm LV Relative Wall Thickness 0.5 RV Internal Dim ED PLAX 3.1 cm LA Systolic Diameter LX 3.4 cm 3.0 - 4.0 / 2.7 - 3.8 cm LV Diastolic Volume MOD 4C 92.9 cm??? LV Systolic Volume MOD 4C 53.3 cm??? LV Ejection Fraction MOD 4C 42.7 % LV Cardiac Index MOD 4C 1503.2 cm???/min???m??? LV Diastolic Length 4C 8.3 cm LV Systolic Length 4C 7.2 cm LV Diastolic Volume MOD 2C 75.3 cm??? LV Systolic Volume MOD 2C 34.6 cm??? LV Ejection Fraction MOD 2C 54.0 % LV Cardiac Index MOD 2C 1542.6 cm???/min???m??? LV Diastolic Length 2C 9.0 cm LV Systolic Length 2C 8.1 cm LA Volume 34.1 cm??? 18 - 58 / 22 - 52 cm??? LA Volume Index 16.8 cm???/m??? 16 - 28 cm???/m??? M-MODE Aortic Root Diameter MM 3.6 cm AV Cusp Separation MM 2.3 cm DOPPLER AV Peak Velocity 93.6 cm/s AV Peak Gradient 3.5 mmHg AI Peak Velocity 293.5 cm/s AI Peak Gradient 34.5 mmHg AI Pressure Half Time 532.7 ms MV Area PHT 2.4 cm??? Mitral E Point Velocity 50.8 cm/s Mitral A Point Velocity 63.2 cm/s Mitral E to A Ratio 0.8 MV Deceleration Time 320.2 ms FINDINGS Left Ventricle Left ventricular ejection fraction is estimated at 40-45 %. Mildly increased septal wall thickness. Left ventricular cavity size normal. Distal anterior, anterolateral and apical wall apical wall hypokinesis Right Ventricle Normal right ventricular size and function. Unable to estimate the right ventricular systolic pressure. Right Atrium Normal right atrial size. Left Atrium Normal left atrial size. Mitral Valve Structurally normal mitral valve. No mitral stenosis, regurgitation or prolapse. Aortic Valve Trileaflet aortic valve. No aortic stenosis. Mild aortic regurgitation. Tricuspid Valve Structurally normal tricuspid valve. No tricuspid stenosis, regurgitation or prolapse. Pulmonic Valve Structurally normal pulmonic valve. No pulmonic regurgitation. Pericardium No pericardial effusion. No pleural effusion. Aorta Normal size aortic root and proximal ascending aorta. CONCLUSIONS Left ventricular ejection fraction is estimated at 40-45 %. Distal anterior, anterolateral and apical wall apical wall hypokinesis . Mild concentric LVH Normal RA, RV, LA size. Mild aortic regurgitation When compared to prior echo from 01/07/2024, LVEF appears mildly improved Previewed by: Dr Paco Ibarra (Electronically Signed) Final Date: 11 February 2024 16:14
[2024-02-11 18:35] LABS: Appearance,Urine Clear (Clear); Bilirubin,Urine Negative (Negative); Blood,Urine Negative (Negative); Color,Urine Colorless; Glucose,Urine (UA) 4+ (Negative); Ketones,Urine Negative (Negative); Leukocyte Esterase,Urine Negative (Negative); Nitrite,Urine Negative (Negative); Protein,Urine Negative (Negative); Specific Gravity,Urine 1.007 (1.001-1.035); Urobilinogen,Urine <2.0 mg/dL (<2.0)
[2024-02-11 19:32] VITALS: RESP 16
[2024-02-11] MEDS: METOPROLOL TARTRATE 50 MG TAB PO SCH (21:17)
--- NOTE | 2024-02-11 22:22 | PN ---
PROGRESS NOTE DATE OF SERVICE: 02/11/2024 SUBJECTIVE: This is a 73-year-old gentleman admitted with chest pain, also had recurrence of chest pain and also had atrial fibrillation with rapid ventricular rate. Cardizem drip was initiated. Cardiology following the patient closely. The patient also had recent CAD stent. The troponins are negative in the beginning. The ejection fraction is found to be 25% indicating possible cardiomyopathy. PAST MEDICAL HISTORY: Reviewed. REVIEW OF SYSTEMS: A 14-point review is negative except as mentioned earlier. CURRENT MEDICATIONS: Reviewed include Lipitor, dose and rest of medications noted. PHYSICAL EXAMINATION: VITAL SIGNS: Pulse is 120, blood pressure 104/55, respirations 20. HEENT: Conjunctivae normal. NECK: No JVD. CARDIOVASCULAR: Sinus tachycardia. RESPIRATIONS: Clear to auscultation. ABDOMEN: Soft, nontender. NERVOUS SYSTEM: Nonfocal. LABORATORY DATA: WBC 13.5. ASSESSMENT: 1. Chest pain, possible unstable angina. 2. Ejection fraction 25% with chronic systolic dysfunction. 3. Atrial fibrillation with fast ventricular rate, new onset. 4. Hypertension. 5. Hyperlipidemia. 6. Elevated WBC. RECOMMENDATIONS AND DISCUSSION: I recommend to continue current management and continue symptomatic treatment. Otherwise, I would also recommend UA with micro and set of cultures. Continue with Cardizem. The chest x-ray which I personally evaluated showed no acute abnormalities and further recommendations to follow. The patient has predominantly neutrophilic leukocytosis. MMODL / IJN: [id number] /
[2024-02-12 07:25] VITALS: BP 120/66; PULSE 79; TEMP 98.5
[2024-02-12 10:31] LABS: Basophils # (A) 0.03 X 10*3/uL (0.00-0.10); Basophils % (A) 0.3 %; Eosinophils # (A) 0.32 X 10*3/uL (0.04-0.35); Eosinophils % (A) 2.8 %; HGB 12.9 g/dL (13.0-17.0); Lymphocytes # (A) 1.73 X 10*3/uL (0.90-5.00); Lymphocytes % (A) 15.4 %; MCH 32.2 pg (27.0-32.0); MCHC 33.9 g/dL (32.0-37.0); MCV 94.8 FL (80.0-97.0); Mean Platelet Volume 10.7 FL (9.5-12.2); Monocytes # (A) 1.24 X 10*3/uL (0.20-1.00); NRBC Per 100 WBC 0 X 10*3/uL (0.00-0.01); Neutrophils # (A) 7.89 X 10*3/uL (1.80-7.70); Neutrophils % (A) 70.2 %; Platelet Count 241 X 10*3/uL (140-440); RBC 4.01 X 10*6/uL (4.40-5.60); RDW 13.1 % (11.5-14.5); WBC 11.24 X 10*3/uL (4.50-10.00)
[2024-02-12 10:37] LABS: BUN/Creat Ratio 13.73 Ratio (12.00-20.00); Blood Urea Nitrogen 15.1 mg/dL (9.0-27.0); Glucose 109 mg/dL (70-110)
[2024-02-12 10:38] LABS: Calcium 8.4 mg/dL (8.7-10.3); Carbon Dioxide 20.7 mmol/L (21.6-31.8); Chloride 107 mmol/L (96-109); Sodium 140 mmol/L (135-145)
--- NOTE | 2024-02-12 12:14 | P.PN ---
Subjective Progress Note Date: 02/12/24 History of present illness: This is a pleasant 73-year-old gentleman who follows in the office with Dr. Pollack. He has a recent history in December of this year of a STEMI at which time he was found to have 100% lesion in the LAD and underwent PCI, ischemic cardiomyopathy with an ejection fraction of 25 to 30% currently wearing a LifeVest. Was seen in the office on Sunday by the nurse practitioner, Leyda, at which time he was feeling "great ". He presented to the hospital with complaints of left shoulder pain which seems to be quite chronic for him as he mentions he has been having on and off for years as well as lower sternal discomfort with deep breathing causing him to cough. Left shoulder pain seems to be reproducible occurring with certain movements and positions. EKG does not show significant changes compared to previous. Troponins came in at 0.018, and less than 0.012 x 2. Renal function is stable. NT proBNP 3700. Upon examination the patient is resting comfortably on a stretcher in the ER awaiting a bed upstairs. He is overall feeling somewhat better in regards to the shoulder discomfort which seems to be his usual pattern. He continues to have sharp lower sternal pain with deep breathing causing cough. He has no symptoms that remind him of what he felt with his UT last month. His breathing has been stable. He has no edema. He has no orthopnea or PND. He has had no potation's or discharges from the LifeVest. He has mild positional dizziness that is gradually improving. 02/10 Patient states that he was expecting to get an echocardiogram today and probably go home. Unfortunately, patient was found to be in A-fib with RVR this morning heart rate was running between the 130s and 150s. Blood pressure 97/64. A-Team was called in order for patient to obtain IV medications. 1 dose of adenosine 6 mg given, heart rate slowed but did not convert. Patient was then started on IV Cardizem bolus of 10 mg followed by 10 mg drip and IV fluid bolus of 250 mL. Yesterday, Aldactone was increased and Farxiga was added. 02/11 Patient remains in a sinus rhythm. He denies having any chest pain. No palpitations, no lightheadedness or dizziness. Blood pressure 120/66, heart rate 79, pulse ox 97% on room air. Repeat blood work reveals WBC 11.2, hemoglobin 12.9. Creatinine 1.1. Yesterday, patient converted to sinus rhythm and Cardizem drip was discontinued. Metoprolol was increased as well and patient started on Eliquis. Echocardiogram reveals EF of 40 to 45%, mild concentric left ventricular hypertrophy, mild aortic regurgitation. Reviewed results of echocardiogram with patient and his . PHYSICAL EXAMINATION: This is a 73-year-old gentleman in no apparent distress at the time of my examination. VITAL SIGNS: Reviewed. HEENT: Head is atraumatic, normocephalic. Pupils are equal, round. Sclerae anicteric. Conjunctivae are clear. There is no elevated jugular venous pressure. CHEST EXAMINATION: Clear to auscultation bilaterally. No wheezes rales or rhonchi. Respirations even and nonlabored. HEART EXAMINATION: Heart irregular, positive S1 and S2. No S3. No S4. Soft systolic murmur. Tachycardic secondary to atrial fibrillation with RVR ABDOMEN: Soft, nontender. Bowel sounds are heard. No organomegaly noted. EXTREMITIES: 2+ peripheral pulses with no evidence of peripheral edema and no calf tenderness noted. NEUROLOGIC EXAMINATION: Patient is awake, alert and oriented x3. Assessment Symptoms of the left shoulder discomfort as well as lower sternal pain, both reproducible, acute coronary event has been ruled out Status post recent STEMI with stenting to the LAD Ischemic cardiomyopathy with most recent ejection fraction 25 to 30%, currently wearing LifeVest, NT proBNP 3700 Hyperlipidemia New onset paroxysmal atrial fibrillation with RVR, converted to sinus Plan: Continue current cardiac medications: Eliquis 5 mg twice daily, Lipitor 80 mg daily, Farxiga 10 mg daily, losartan 25 mg daily, Lopressor 50 mg twice daily, Aldactone 25 mg daily and Brilinta 90 mg twice daily New cardiac prescriptions have been sent to his pharmacy Patient is cleared for discharge from cardiology and may follow-up in the office with Dr. Pollack in 1 to 2 weeks. Nurse practitioner note has been reviewed, I agree with documented findings and plan of care. Patient was seen and examined. Dr. Ibarra's addendum Patient cannot afford Brilinta. He is being told to switch to Plavix. If patient is unable to afford Eliquis, consider Pradaxa Patient presents the hospital because of generalized weakness and bilateral shoulder pain. He was ruled out of ACS. During hospital stay he had an episode of atrial fibrillation with RVR for which she was given Cardizem IV push and drip. Being on Cardizem drip for 60 minutes he converted out to sinus rhythm. He has not had any recurrence. During this hospital admission we increased his metoprolol to tartrate from 25 mg to 50 mg twice daily. We also started him on Eliquis. Currently he is euvolemic, in sinus rhythm, no further symptoms. He reports feeling better and back to baseline Objective - Vital Signs Vital signs: Vital Signs Temp 98.5 F 02/12/24 07:00 Pulse 79 02/12/24 07:00 Resp 16 02/12/24 07:00 BP 120/66 02/12/24 07:00 Pulse Ox 97 02/12/24 07:00 FiO2 Intake & Output 02/11/24 02/12/24 02/12/24 18:59 06:59 18:59 Intake Total 118 118 Balance 118 118 Intake: Oral 118 118 Other: Voiding Method Toilet # Voids 1 1 - Labs CBC & Chem 7: 02/12/24 07:27 02/12/24 07:27 Labs: Abnormal Lab Results - Last 24 Hours (Table) 02/11/24 02/11/24 02/11/24 Range/Units 09:53 09:53 17:47 ESR 39 H (0-20) mm/Hr C-Reactive Protein 11.90 H (0.00-0.80) mg/dL Urine Glucose (UA) 4+ H (Negative)
--- NOTE | 2024-02-12 16:16 | P.DS ---
Providers Date of admission: 02/11/24 10:30 Expected date of discharge: 02/12/24 Attending physician: James Pearce MD Consults: 02/09/24 20:37 Consult Physician Routine Consulting Provider: Lemuel Pollack Consult Reason/Comments: Chest pain, elevated BNP Do you want consulting provider notified?: Yes Primary care physician: Jesús Meraz Hospital Course: Final diagnosis -Chest pain, likely musculoskeletal, ACS ruled out -Recent history of ME with 100% obstruction of the LAD and is status post stent placement, continues with LifeVest -History of ischemic cardiomyopathy, EF was 25 to 30% -New onset atrial fibrillation with RVR, paroxysmal, converted to sinus -Hypertension -Hyperlipidemia -History of seasonal allergies -GI prophylaxis -DVT prophylaxis; SCDs -full code Discharge disposition Patient is being discharged in a stable condition with guarded prognosis to home. Patient will follow-up with Dr. Meraz in the outpatient setting upon discharge. Patient is to continue with current cardiac medications and outpatient follow-up with Dr. Pollack cardiology as scheduled. Patient is being started on Eliquis. total time taken is greater than 35 minutes. Hospital course This is a 73-year-old male who was recently admitted with chest pain, likely musculoskeletal, ACS ruled out. Patient elevated by cardiology also noted to have new onset atrial fibrillation given heparin along with adjustments to medications has been transition to oral Eliquis and will continue with close outpatient follow-up. Patient does continue with a LifeVest and has an appointment in April with cardiology Dr. Pollack. Recommend seeing layaway clerk in the outpatient setting in the next 1 to 2 weeks posthospitalization. Patient reports EF is noted to be improved. Patient has been cleared by cardiology. Patient reports to feeling well and will be going home. Please refer to cardiology notes for further HPI. Currently no reports of chest pain, shortness of breath, or palpitations. Patient is afebrile. No reports of nausea or vomiting and patient is tolerating diet. Patient will be discharged home today. Guarded prognosis given significant comorbidities Physical exam: Gen: This is a 73-year-old male who is awake, alert and oriented x 3, well- developed, thin built, elderly appearing HEENT: Head is atraumatic, normocephalic. Pupils equal, round. Sclerae is anicteric. NECK: Supple. No JVD. No lymphadenopathy. No thyromegaly. LUNGS: Clear to auscultation. No wheezes or rhonchi. No intercostal retractions. HEART: S1, S2 are muffled ABDOMEN: Soft. Thin. Bowel sounds are present. No masses. No tenderness. EXTREMITIES: No pedal edema. No calf tenderness. NEUROLOGICAL: Patient is awake, alert and oriented x3. Cranial nerves 2 through 12 are grossly intact. Please refer to medication reconciliation sheet for a list of medications. The impression and plan of care has been dictated by Beth Chaney, Nurse Practitioner as directed. Dr. Ady MD I have performed a history and examination and MDM of this patient, discussed the same with the dictator, and agree with the dictator's assessment and plan as written ,documented as a scribe. Based on total visit time, I have performed more than 50% of the visit. Patient Condition at Discharge: Stable Plan - Discharge Summary New Discharge Prescriptions: New Spironolactone [Aldactone] 25 mg PO DAILY #90 tab Losartan [Cozaar] 25 mg PO DAILY #90 tab Apixaban [Eliquis] 5 mg PO BID #180 tab Dapagliflozin Propanediol [Farxiga] 10 mg PO DAILY #90 tab Metoprolol Tartrate [Lopressor] 50 mg PO BID #180 tab Acetaminophen Tab [Tylenol] 650 mg PO Q6HR PRN tab PRN Reason: Mild Pain Or Fever > 100.5 Continue Multivitamins, Thera [Multivitamin (formulary)] 1 tab PO DAILY Ticagrelor [Brilinta] 90 mg PO BID 30 Days #60 tab Nitroglycerin Sl Tabs [Nitrostat] 0.4 mg SUBLINGUAL Q5M PRN #30 tab PRN Reason: Chest Pain Fexofenadine HCl [Alyse Allergy] 180 mg PO DAILY Atorvastatin [Lipitor] 80 mg PO HS #30 tab Discontinued Metoprolol Tartrate [Lopressor] 25 mg PO BID 30 Days #60 tab Losartan [Cozaar] 12.5 mg PO DAILY lisinopriL [Zestril] 2.5 mg PO DAILY Spironolactone [Aldactone] 12.5 mg PO DAILY 30 Days #30 tab Aspirin 81 mg PO DAILY 30 Days #30 tab Discharge Medication List Fexofenadine HCl [Alyse Allergy] 180 mg PO DAILY 01/12/24 [History] Multivitamins, Thera [Multivitamin (formulary)] 1 tab PO DAILY 01/12/24 [History] Atorvastatin [Lipitor] 80 mg PO HS #30 tab 01/15/24 [Rx] Nitroglycerin Sl Tabs [Nitrostat] 0.4 mg SUBLINGUAL Q5M PRN #30 tab 01/15/24 [ Rx] Ticagrelor [Brilinta] 90 mg PO BID 30 Days #60 tab 01/15/24 [Rx] Acetaminophen Tab [Tylenol] 650 mg PO Q6HR PRN tab 02/12/24 [Rx] Apixaban [Eliquis] 5 mg PO BID #180 tab 02/12/24 [Rx] Dapagliflozin Propanediol [Farxiga] 10 mg PO DAILY #90 tab 02/12/24 [Rx] Losartan [Cozaar] 25 mg PO DAILY #90 tab 02/12/24 [Rx] Metoprolol Tartrate [Lopressor] 50 mg PO BID #180 tab 02/12/24 [Rx] Spironolactone [Aldactone] 25 mg PO DAILY #90 tab 02/12/24 [Rx] Follow up Appointment(s)/Referral(s): Lemuel Pollack DO [STAFF PHYSICIAN] - 10 Days Jesús Meraz DO [Primary Care Provider] - 1-2 days Patient Instructions/Handouts: Chest Pain (DC) Activity/Diet/Wound Care/Special Instructions: Activity limited until follow-up Follow-up with primary care provider on discharge Follow-up with cardiology outpatient Continue taking medications as prescribed Discharge Disposition: HOME SELF-CARE
== END 2024-02-12 13:47 | disposition home or self-care (01) | DRG 313 ==
LOC: EC 17:19 → 6NMEDSUR 20:37 → OBSVTOIN 02-11 10:30
PROVIDERS: ADMIT Internal Medicine; ATTEND Internal Medicine
DX: R07.89 Other chest pain (principal); E78.5 Hyperlipidemia, unspecified; I11.0 Hypertensive heart disease with heart failure; I25.5 Ischemic cardiomyopathy; I50.9 Heart failure, unspecified; I25.2 Old myocardial infarction; I25.10 Atherosclerotic heart disease of native coronary artery without angina pectoris; I48.0 Paroxysmal atrial fibrillation; Z79.82 Long term (current) use of aspirin; Z79.02 Long term (current) use of antithrombotics/antiplatelets; Z79.899 Other long term (current) drug therapy; Z79.84 Long term (current) use of oral hypoglycemic drugs; M25.512 Pain in left shoulder; M25.511 Pain in right shoulder; R00.0 Tachycardia, unspecified; R01.1 Cardiac murmur, unspecified; Z98.42 Cataract extraction status, left eye; Z98.41 Cataract extraction status, right eye
CPT/HCPCS: 36415; 71046; 80048; 80053; 81003; 83690; 83735; 83880; 84484; 85025; 85379; 85610; 85652; 85730; 86140; 87040; 93005; 93306; 96374; 99291

== ENCOUNTER 2024-04-08 08:32 | Emergency (ER) | payer MEDICARE, BC ==
[2024-04-08] MEDS ORDERED: KETOROLAC 15 MG/ML 1 ML VIAL ONE (09:02)
[2024-04-08] MEDS ORDERED: ASPIRIN 325 MG TAB ONE (09:02)
[2024-04-08] MEDS ORDERED: ASPIRIN 81 MG ONE (09:04)
[2024-04-08] MEDS ORDERED: SODIUM CHLORIDE 0.9% 500 ML BAG ONE (09:08)
[2024-04-08] MEDS ORDERED: methylPREDNISolone SOD SUCCI 125 MG/2 ML VIAL ONE (11:22)
[2024-04-08] MEDS ORDERED: IPRATROPIUM-ALBUTEROL 3 ML NEB ONE (11:57)
[2024-04-08] MEDS ORDERED: cefTRIAXone IN SWFI 1,000 MG/10 ML SYRINGE IVP ONE (14:54)
== END 2024-04-08 15:04 | disposition home or self-care (01) ==
LOC: EC 08:32
DX: J18.9 Pneumonia, unspecified organism (principal)
CPT/HCPCS: 71046; 93005; 94640; 96361; 96374; 96375; 99285

== ENCOUNTER → 2024-06-24 | Outpatient (CLI) | payer MEDICARE, BC ==
[2024-06-24 15:18] LABS: ALT 37 U/L (10-49); AST 18 U/L (14-35); Chol/HDL Ratio 3.13 Ratio; LDL Cholesterol,Calculated 52.7 mg/dL (0.0-131.0)
== END | disposition home or self-care (01) ==
LOC: LABWHC1 08:49
PROVIDERS: ATTEND Internal Medicine
DX: E78.2 Mixed hyperlipidemia (principal)
CPT/HCPCS: 36415; 80061; 84450; 84460